=== PATIENT | male | born 1940 | race Caucasian/White ===

== ENCOUNTER → 2020-05-30 08:04 | Outpatient (CLI) | payer MEDICARE, SELFPAY ==
--- NOTE | ~2020-05-30 | CT_ITS ---
EXAMINATION: CT chest abdomen pelvis w con DATE: 05/30/2020 08:48 INDICATION: Malignant neoplasm of prostate. TECHNIQUE: Computed tomography (CT) of the chest, abdomen, and pelvis was performed with 100 mL Omnip aque 350 intravenous contrast. Automated exposure control and iterative reconstruction technique were employed. The dose-length product was 1037.16 mGy-cm. COMPARISON: CT chest, abdomen, and pelvis 10/16/2019 FINDINGS: CHEST CT: The lungs demonstrate mild atelectasis. There is a right posterior diaphragmatic hernia containing fa t. No pleural effusion. The heart size is normal. There are coronary artery calcifications. There are calcifications of the aortic valve. No pericardial effusion. There is mild right supraclavicular lym phadenopathy. There is mild mediastinal lymphadenopathy. There is a small sliding hiatal hernia. Ther e is a left shoulder arthroplasty. There are sclerotic lesions in the right third and fifth ribs and left fourth, fifth, and sixth ribs. There are sclerotic lesions in the T2, T3, T4, T5, T6, T7, and T1 1 vertebrae. ABDOMEN/PELVIS CT: Calcifications in the liver and spleen are consistent with old granulomatous disease. There is a 13 m m low-attenuation mass in right hepatic lobe. The gallbladder, pancreas, and adrenal glands are alex l. There are cysts in the kidneys measuring up to 4.3 cm on the left. There is a left inguinal hernia containing fat. There are changes of prostatectomy and pelvic lymph node dissection. There are no di lated loops of bowel. The appendix is normal. There is mild aortocaval lymphadenopathy. There is a pl ug from right inguinal hernia repair. There is subcutaneous fat stranding in the anterior abdominal w all, likely scarring or inflammation. There is no free intraperitoneal fluid. There is severe lumbar spondylosis. There is a sclerotic lesion in L5 vertebral body. IMPRESSION: 1. Sclerotic lesions of bone with worsening from 10/16/2019, consistent with metastatic disease. 2. Worsened aortocaval, mediastinal, and right supraclavicular lymphadenopathy, consistent with metas tatic disease. 3. New 13 mm liver mass suspicious for metastatic disease. Reviewed, dictated and finalized at location B. IMPRESSION: 1. Sclerotic lesions of bone with worsening from 10/16/2019, consistent with me tastatic disease. 2. Worsened aortocaval, mediastinal, and right supraclavicular lymphadenopathy, consistent with metastatic disease. 3. New 13 mm liver mass suspicious for metastatic disease.
[2020-05-30 08:23] LABS: Estimated Glomerular Filt Rate > 60
== END ==
PROVIDERS: Visit Provider Internal Medicine Medical Oncology
DX: C61 Malignant neoplasm of prostate (principal); C79.51 Secondary malignant neoplasm of bone
CPT/HCPCS: 36415; 71260; 74177; Q9967

== ENCOUNTER 2021-01-06 10:49 | Outpatient (CLI) | payer MEDICARE, SELFPAY ==
--- NOTE | ~2021-01-06 | CT_ITS ---
EXAMINATION: CT chest abdomen pelvis w con EXAM DATE: 01/06/2021 11:28 INDICATION: Prostate cancer. Osteoblastic disease. TECHNIQUE: Spiral CT of the chest, abdomen and pelvis was performed following intravenous injection o f 100 mL Omnipaque 350. Axial, coronal and sagittal images were reviewed. Coronal maximum intensity pixel images of chest reviewed. The dose-length product (DLP) for this examination was 826.52 mGy-c m. The exposure was tailored according to patient size (auto mA exposure control), and iterative rec onstruction (ASIR) was used as additional dose reduction technique. Comparison is made to prior exami nation from 05/30/2020. FINDINGS: CHEST: There is mild bronchiectasis. Linear lingular and right lower lobe subsegmental atelectasis. There is a moderate-sized right-sided Bochdalek hernia containing fat. There are no pleural or peric ardial effusions. Tracheobronchial tree is patent. More visible mediastinal lymph nodes than typi doug seen, but these have normalized in size compared to prior examination, probably metastatic with response to treatment. There is no pneumothorax. Heart normal in size. There is moderate kline ry arterial calcification, arterial sclerosis. ABDOMEN PELVIS: Previously seen newly developed small right liver lobe lesion is no longer identified , may be metastatic with response to treatment. The liver, spleen, adrenal glands and pancreas are u nremarkable. Gallbladder is unremarkable. No biliary obstruction. Portal and splenic veins are pat ent. Kidneys enhance symmetrically. There is no hydronephrosis. There are bilateral renal cysts annabelle suring up to 4.4 cm on the left. Patient has likely had prostatectomy. The bladder is unremarkable . Surgical clips from pelvic lymph node dissection. There is no retroperitoneal or pelvic lymphadenop athy. There is mild to moderate scattered arteriosclerotic disease. The appendix is normal. The stomach and small bowel are unremarkable. There is expected amount of c olonic stool. No free intraperitoneal gas. There is been some continued interval progression the extensive vertebral body and rib osteoblastic disease. IMPRESSION: 1. Mild interval progression in extensive vertebral body, rib osteoblastic disease. 2. Interval normalization of metastatic mediastinal lymph size, and interval resolution of previousl y seen newly developed small liver lesion suspected to be metastatic. Reviewed, dictated and finalized at location A. IMPRESSION: 1. Mild interval progression in extensive vertebral body, rib osteoblastic dis ease. 2. Interval normalization of metastatic mediastinal lymph size, and interval r esolution of previously seen newly developed small liver lesion suspected to be metastatic.
[2021-01-06 11:20] LABS: Estimated Glomerular Filt Rate > 60
== END 2021-01-06 10:50 | disposition home or self-care (01) ==
PROVIDERS: PCP Internal Medicine; Visit Provider Internal Medicine Medical Oncology
DX: C61 Malignant neoplasm of prostate (principal)
CPT/HCPCS: 71260; 74177; Q9967

== ENCOUNTER 2021-10-08 07:28 | Outpatient (CLI) | payer MEDICARE, SELFPAY ==
--- NOTE | ~2021-10-08 | CT_ITS ---
EXAMINATION: CT chest abdomen pelvis w con DATE: 10/08/2021 08:08 INDICATION: Restaging metastatic prostate cancer TECHNIQUE: Computed tomography (CT) of the chest, abdomen, and pelvis was performed with 100 cc Omnip aque 350 intravenous contrast. Automated exposure control and iterative reconstruction technique were employed. Exam dose: 879.81 mGy-cm total exam DLP. COMPARISON: 01/06/2021 CT chest abdomen pelvis FINDINGS: CHEST CT: Normal size and homogeneous enhancement of the thyroid gland. Normal heart size. Coronary calcification. Aortic valve calcification. No pericardial or pleural effu gregory. No thoracic aortic aneurysm or dissection is detected. There are calcified right paratracheal and left hilar nodes and calcified left lower lobe pulmonary g ranulomas and calcified hepatic and splenic granulomas, consistent with old granulomatous disease. No hilar or mediastinal mass lesion or lymphadenopathy. No pulmonary infiltrate or consolidation or pulmonary mass lesion is detected. Small sliding hiatal hernia. Status post left glenohumeral arthroplasty. ABDOMEN/PELVIS CT: Calcified hepatic and granulomas consistent with old granulomatous disease. Diffuse hepatic steatosis . No hepatic, splenic, pancreatic or adrenal space-occupying mass lesion. The gallbladder is present and appears unremarkable. No bile duct or pancreatic duct dilatation. Occasional right renal cysts measuring up to 9 mm. 1.2 cm and 1 cm left renal cysts. No urinary tract calculus or hydroureteronephrosis. Status post prostatectomy and bilateral pelvic sidewall lymph node excision. There is moderate diffus e thickening of the urinary bladder wall. There is atherosclerotic calcification of the abdominal aorta. No intraperitoneal or retroperitoneal or pelvic mass lesion or adenopathy or ascites. No bowel obstruction, bowel wall thickening, pneumatosis or intraperitoneal free air. Small fat-containing left inguinal hernia. Probable right inguinal herniorrhaphy. Extensive osteosclerotic metastatic disease of the cervical, thoracic and lumbar spine, ribs and to a lesser extent pelvis is again noted, relatively stable since 01/06/2021.. 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 Reviewed, dictated and finalized at location B. 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
[2021-10-08 08:00] LABS: Estimated Glomerular Filt Rate > 60
== END 2021-10-08 07:29 | disposition home or self-care (01) ==
LOC: ANHIMG 07:31
PROVIDERS: PCP Internal Medicine; Visit Provider Internal Medicine Medical Oncology
DX: C61 Malignant neoplasm of prostate (principal); C79.51 Secondary malignant neoplasm of bone; C77.1 Secondary and unspecified malignant neoplasm of intrathoracic lymph nodes; K40.90 Unilateral inguinal hernia, without obstruction or gangrene, not specified as recurrent; K44.9 Diaphragmatic hernia without obstruction or gangrene; N28.1 Cyst of kidney, acquired
CPT/HCPCS: 71260; 74177; Q9967

== ENCOUNTER 2022-02-01 07:26 | Inpatient (IN) | payer MEDICARE, SELFPAY ==
--- NOTE | ~2022-02-01 | CT_ITS ---
EXAMINATION: CT abdomen pelvis w con DATE: 02/01/2022 09:21 INDICATION: Nausea and vomiting. TECHNIQUE: Computed tomography (CT) of the abdomen and pelvis was performed with 100 mL Omnipaque 350 intravenous contrast. Automated exposure control and iterative reconstruction technique were employe d. The dose-length product was 661.97 mGy-cm. COMPARISON: CT abdomen and pelvis 10/08/2021 FINDINGS: The visualized portions of the lung bases demonstrate mild atelectasis. There is a right po sterior diaphragmatic hernia containing fat. No pleural effusion. The heart size is normal. There are coronary artery calcifications. There are calcifications of aortic valve. No pericardial effusion. T here is a small sliding hiatal hernia. There is a 7 mm cyst in the liver. Calcifications in the splee n are consistent with old granulomatous disease. The gallbladder, pancreas, and adrenal glands are no rmal. There are cysts in the kidneys measuring up to 3.8 cm on the left. There is a left inguinal her rosalio containing small bowel. The small bowel is dilated proximal to this area, consistent with obstruc tion. There are surgical clips from pelvic lymph node dissection. There are changes of prostatectomy. There is subcutaneous scarring in anterior abdominal wall. There are changes of right inguinal herni a repair. There are no pathologically enlarged lymph nodes. There is no free intraperitoneal fluid. T here are widespread scattered sclerotic lesions of bone, consistent with metastatic disease. IMPRESSION: 1. Left inguinal hernia containing small bowel with small bowel obstruction. 2. Widespread osseous metastatic disease, mildly worsened from 10/08/2021. Reviewed, dictated and finalized at location A.
--- NOTE | ~2022-02-01 | XR_ITS ---
EXAMINATION: XR abdomen obstructive series EXAM DATE: 02/03/2022 05:57 INDICATION: Resolving bowel obstruction with L inguinal hernia. TECHNIQUE: Frontal upright projection of the upper abdomen, frontal projection of the lower abdomen f or interpretation. Comparison is made to prior examination from 02/02/2022. FINDINGS: There is interval improvement in distention of small bowel, improving small bowel obstruct ion. Only mild dilation present in a few small bowel loops today. Moderate amount of colonic gas. Pel uma surgical clips from inguinal hernia repairs. Advanced lower lumbar spondylosis. Regions of dense bones, osteoblastic disease. No free intraperitoneal gas. Lung bases unremarkable. IMPRESSION: Resolving dilated small bowel. Osteoblastic disease. Reviewed, dictated and finalized at location A.
--- NOTE | ~2022-02-01 | XR_ITS ---
EXAMINATION: XR abdomen obstructive series EXAM DATE: 02/02/2022 06:01 INDICATION: F/U on possible small bowel obs asooc w/ LIH . TECHNIQUE: Frontal upright projection of the upper abdomen, frontal projection of the lower abdomen f or interpretation. Correlation made to prior CT abdomen pelvis from 02/01/2022. FINDINGS: CT scan demonstrated a left lower quadrant inguinal hernia containing small bowel, causing obstruction. Multiple loops of distended air-filled small bowel up to about 4 cm in diameter, consis tent with small bowel obstruction. There are bilateral inguinal surgical clips. No evidence of free i ntraperitoneal air. Scattered osteoblastic disease. No basilar consolidation. IMPRESSION: Moderately distended small bowel. Inguinal hernia was reportedly reduced; consider addit ional follow-up or small bowel follow-through. Reviewed, dictated and finalized at location A. IMPRESSION: Moderately distended small bowel. Inguinal hernia was reportedly r educed; consider additional follow-up or small bowel follow-through.
[2022-02-01 07:37] VITALS: BP 132/102; PULSE 105; RESP 18; TEMP 36.5; O2SAT 100
--- NOTE | 2022-02-01 07:43 | ECG_ITS ---
Measurements Intervals [place] Rate: 100 P: UT: 0 QRS: -28 QRSD: 148 T: -61 QT: 414 QTc: 535 Interpretive Statements ATRIAL FIBRILLATION WITH RAPID VENTRICULAR RESPONSE BORDERLINE LEFT AXIS DEVIATION [QRS AXIS < -20] RIGHT BUNDLE BRANCH BLOCK [120+ ms QRS DURATION, UPRIGHT V1, 40+ ms S IN I/aVL/V4/V5/V6] MODERATE T-WAVE ABNORMALITY, CONSIDER INFERIOR AND LATERAL ISCHEMIA [-0.1+ mV T-WAVE IN I/aVL/V5/V6] ABNORMAL ECG NO PREVIOUS ECG AVAILABLE FOR COMPARISON Electronically Signed On 02-01-2022 11:21:57 CDT by Mitchel Fernandez M.D.
[2022-02-01] MEDS: SODIUM CHLORIDE 0.9% IV 1,000 ML 999 ML IV CONT ×2 (07:53→09:01)
[2022-02-01] MEDS: ONDANSETRON INJ 4 MG/2 ML VIAL IV PUSH ×2 (07:53→18:07)
--- NOTE | 2022-02-01 08:03 | PC.NURSE ---
Pt noted he hadnt been able to urinate much more that dribbles the past 3 days. Bladder scan revealed approx 50ml in bladder at this time.
[2022-02-01 08:06] LABS: Hematocrit 30.6 % (42.0-52.0); Hemoglobin 9.5 g/dL (14.0-18.0); Immature Platelet Fraction Pct 7.4 % (0.9-11.2); Mean Corpuscular Hemoglobin 30.8 pg (26-34); Mean Corpuscular Volume 99.4 fl (80-100); Mean Platelet Volume 10.7 fl (7.4-10.4); Platelet Count Result 67 k/mm3 (150-375); Red Blood Count 3.08 M/mm3 (4.6-6.20); Red Cell Distribution Width 20.3 % (11.5-14.5); White Blood Count 6.3 K/mm3 (4.5-10.0)
--- NOTE | 2022-02-01 08:16 | ED.NAVMDI ---
HPI - Nausea/Vomiting/Diarrhea General Chief complaint: Nausea/Vomiting/Diarrhea Stated complaint: vomiting Time Seen by Provider: 02/01/22 07:42 Source: patient, family and EMS Mode of arrival: EMS Limitations: no limitations History of Present Illness HPI Narrative: Patient is 81 years old presented to the ED with vomiting over the last 3 days, on average 4 times a day. Patient denies any fever, chills, abdominal pain, diarrhea, urinary symptoms. History of prostatic cancer, on chemotherapy for years, last 1 was 5 days ago. Patient denies any history of vomiting with chemotherapy. Related Data Allergies Allergy/AdvReac Type Severity Reaction Status Date / Time No Known Allergies Allergy Verified 02/01/22 07:52 Review of Systems Review of Systems: CONSTITUTIONAL: Denies fever, chills, or sweats. EYES: Denies visual changes, redness, or discharge. ENT: Denies rhinorrhea, congestion, sore throat, or otalgia. CARDIOVASCULAR: Denies chest pain, palpitations, or edema. RESPIRATORY: Denies cough or dyspnea. GASTROINTESTINAL: Denies abdominal pain, nausea, vomiting, or diarrhea. GENITOURINARY: Vomiting SKIN: Denies rash or itching. MUSCULOSKELETAL: Denies back pain, joint pain, or myalgia. NEUROLOGIC: Denies headache, numbness, or weakness. PSYCHIATRIC: Denies anxiety or depression. PMFSH Family History Family History Mother Diabetes mellitus Other Family history of cardiovascular disease Family history of malignant neoplasm Social History Social History Smoking status: Former smoker Smoking end date: 10/18/81 Alcohol intake: current Exam Narrative: General appearance: Well-developed, well-nourished Skin: Normal color Head: Normocephalic, nontraumatic Eyes: Clear conjunctiva ENT: Oropharynx normal, ears normal, nose normal Neck: Supple, nontender Chest and respiratory: Airway patent, no respiratory distress, no accessory muscle use Heart: Regular rate/rhythm Abdomen: Soft, nontender, no organomegaly, quiet bowel sounds Vascular: Normal peripheral pulses, normal capillary refill. Musculoskeletal: Normal range of motion, nontender back Neurologic: Alert and oriented ?3, [employer] is normal as tested, no gross motor deficit Course Course Emergency Course: Stable Consultations Consultation #1: Date: 02/01/22 Time: 09:58 Vital Signs Vital signs: Vital Signs Temperature 36.5 C 02/01/22 07:37 Pulse Rate 105 H 02/01/22 07:37 Respiratory Rate 18 02/01/22 07:37 Blood Pressure 132/102 H 02/01/22 07:37 Pulse Oximetry 100 02/01/22 07:37 Temperature 36.5 C 02/01/22 07:37 Pulse Rate 105 H 02/01/22 07:37 Respiratory Rate 18 02/01/22 07:37 Blood Pressure 132/102 H 02/01/22 07:37 Pulse Oximetry 100 02/01/22 07:37 Procedures Other Procedure Procedure 1: Other Procedure: Left inguinal hernia closed reduction with constant pressure and manipulation. 3 minutes time used for reduction. Patient feeling well, pain resolved, patient tolerated the procedure well MDM - Nausea/Vomiting/Diarrhea Differential Diagnosis Differential diagnosis: Likely gastroenteritis, drug-induced nausea and vomiting, dehydration and other (Electrolyte imbalance, small bowel obstruction) Lab Data Result diagrams: 02/01/22 07:58 02/01/22 07:58 Labs: Lab Results 02/01/22 02/01/22 02/01/22 Range/Units 07:58 07:58 07:58 WBC 6.3 (4.5-10.0) K/mm3 RBC 3.08 L (4.6-6.20) M/mm3 Hgb 9.5 L (14.0-18.0) g/dL Hct 30.6 L (42.0-52.0) % MCV 99.4 (80-100) fl MCH 30.8
[2022-02-01 08:18] LABS: Alanine Aminotransferase 21 U/L (4-50); Albumin Level 4.9 g/dL (3.5-5.1); Alkaline Phosphatase 143 U/L (38-126); Anion Gap 17 mmol/L (8-16); Aspartate Amino Transferase 37 U/L (17-59); Bilirubin,Total 0.8 mg/dL (0.2-1.3); Blood Urea Nitrogen 36 mg/dL (9-20); Calcium 8.2 mg/dL (8.4-10.2); Carbon Dioxide 22 mmol/L (22-30); Chloride 97 mmol/L (98-107); Estimated CRCL calculation 46 ml/min; Estimated Glomerular Filt Rate > 60; Glucose 266 mg/dL (65-110); Lipase 40 U/L (23-300); Potassium 3.5 mmol/L (3.4-5.0); Sodium 136 mmol/L (137-145)
[2022-02-01 08:19] LABS: Lactic Acid Reflex 3.1 mmol/L (0.7-2.1)
[2022-02-01 08:41] LABS: Band Neutrophils Percent 8 % (0-6); Lymphocytes Absolute Manual 0.12 K/mm3 (1.1-4.5); Monocytes Absolute Manual 0.12 K/mm3 (0.1-0.90); Monocytes Percent Manual 2 % (3-9); Neutrophils Absolute Manual 6.04 K/mm3 (1.3-6.7); Neutrophils Percent Manual 88 % (46-73); Total Cells Counted 100
[2022-02-01 08:42] LABS: Anisocytosis 1+ (NORMAL); Platelet Estimate Decreased (Adequate)
--- NOTE | 2022-02-01 09:39 | PC.NURSE ---
Pt vomiting. EDP notified. Gown changed and new orders for antiemetics received.
[2022-02-01] MEDS: METOCLOPRAMIDE HCL INJ 10 MG/2 ML VIAL IV PUSH (09:45)
[2022-02-01] MEDS: diphenhydrAMINE HCl INJ 50 MG/ML VIAL 25 MG IV PUSH (09:46)
--- NOTE | 2022-02-01 10:15 | PC.NURSE ---
Per EDP NG tube not needed at this time after successful hernia reductions. Will continue to monitor pt vomiting
[2022-02-01 11:01] LABS: Reflex Lactic Acid Yes or No Add Lactic
[2022-02-01 11:30] VITALS: BP 113/81; PULSE 95; RESP 16; O2SAT 97
[2022-02-01 11:45] LABS: Appearance Urine Clear (Clear); Bilirubin Urine Negative (Negative); Blood Urine Negative (Negative); Color Urine Yellow (Yellow); Glucose Urine UA Negative (Negative); Ketones Urine Negative (Negative); Leukocyte Esterase Ur Negative LEU/UL (Negative); Nitrate Urine Negative (Negative); Protein Urine Negative (Negative); Specific Grav Ur <= 1.005 (1.001-1.035); Urobilinogen Urine 0.2 mg/dL (<2.0)
[2022-02-01 11:53] LABS: Add Urine Microscopic? NO
[2022-02-01 12:05] VITALS: BMI 28.7
[2022-02-01 12:23] LABS: Lactic Acid 2.6 mmol/L (0.7-2.1)
[2022-02-01 13:46] VITALS: BP 105/64; PULSE 83; RESP 17; TEMP 37.1; O2SAT 100
[2022-02-01] MEDS: SODIUM CHLORIDE 0.9% IV 1,000 ML 100 ML IV CONT ×2 (13:46→20:46)
--- NOTE | 2022-02-01 14:08 | PM.CNGS ---
Assessment and Plan Assessment and plan (1) Recurrent inguinal hernia of left side with obstruction: Onset Date: ~01/2022 Code(s): K40.31 - Unilateral inguinal hernia, with obstruction, without gangrene, recurrent Status: Acute Assessment and Plan: The patient is feeling better now that his left inguinal hernia has been reduced. Is likely that this was the cause of the small-bowel obstructions seen on CT. At this time will allow the patient begin clear liquids will check obstructive use of the abdomen on plain films tomorrow morning. I have thoroughly discussed with the patient and his the risks, benefits, and possible complications of surgical intervention for a recurrent left inguinal hernia. If we can keep this reduced and still have the patient get up and around since he just had chemotherapy 5 days ago is probably wiser not to proceed to surgical intervention at this time. I have discussed with him that probably we could do this under local anesthetic with IV sedation or GI BS. If he is doing well tomorrow he could probably be discharged and will use watchful waiting. Will forward this note to Dr. Mattie Rai and get his opinion upon timing for possible surgical intervention if this with the patient chooses. Certainly since he is continuing to undergo chemotherapy he will need to be very knowledgeable in knowing how to lay down and reduce the hernia if it seems to become incarcerated again. However in his situation with stage IV prostate cancer and his age watchful waiting is a reasonable method of following him and if he has recurrent episodes of incarceration we will need to consider electively timing the site and time for a repair which would try to be done with local anesthetic and IV sedation. Both patient and concur and will discuss it further tomorrow depending on how the patient is doing. Will continue IV fluids at a slow rate allow clear liquids and have the patient began ambulating. I have carefully shown him how to reduce his hernia and he will try to do this himself if he notices that it bulges back out. (2) Prostate cancer metastatic to bone: Onset Date: Unknown Code(s): C61 - Malignant neoplasm of prostate; C79.51 - Secondary malignant neoplasm of bone Status: Acute Assessment and Plan: Patient currently undergoing chemotherapy due to bone metastasis directed by Dr. Ahumada. (3) Complete small bowel obstruction: Code(s): K56.601 - Complete intestinal obstruction, unspecified as to cause Status: Acute Assessment and Plan: This seems to be resolving as patient had a bowel movement since being brought from the emergency room to his room. Will plan to repeat abdominal films tomorrow morning repeat labs including a lactate in the morning and have patient begin trying clear liquids. I have taught the patient where to check for his hernia and how to reduce it. Additional Plan Patient currently undergoing chemotherapy due to bone metastasis directed by Dr. Ahumada. In view of this I would recommend watchful waiting for his hernia unless there is repetitive issues with incarceration. History of Present Illness Consult details Consult date: 02/01/22 Reason for consult: other (Nausea and vomiting) Narrative: Patient is an 81 year old white male who presented to the ED on 02/01/2022 with vomiting over the last 3 days, on average 4 times a day. patient's states that it began after supper on Wednesday night. Patient states that he did have a little bit of left groin pain the night that it started but had really noticed it that much prior to that or since. Patient denies any fever, chills, diarrhea, or urinary tract symptoms. He has a long history of prostatic cancer, he had a prostatectomy almost 15 years ago and then recently has been on chemotherapy for years his last treatment was was 5 days ago. Patient denies any history of vomiting with chemoth
--- NOTE | 2022-02-01 17:42 | PM.IMHP ---
H&P: HPI History of Present Illness Date/Time: 02/01/22 17:42 this is a 81-year-old male who presented to the emergency department with complaints of nausea vomiting. Patient has a past medical history diabetes, high cholesterol, BPH, GERD, hypertension, and anxiety. According to patient on he started to experience nausea vomiting with greenish stomach content. Patient notes that he also has diarrhea along with his nausea vomiting. Patient notes that he took Zofran at home was unable to keep the pills down. WBC 6.3 hemoglobin 9.5 hematocrit 30.6, platelets 67, sodium 136, potassium 3.5, BUN 36, creatinine 1.00, glucose 266, lactic acid 3.1, liver function test within normal limits, UA no abnormalities, CT of the abdomen indicate small bowel obstruction EKG indicates AFib with RVR heart rate of 100 which has resolved. Patient continues to complain about diarrhea and he is no longer having nausea vomiting. Patient being admitted for small-bowel obstruction, surgery consulted. Denies any chest pain, palpitation, shortness of breath, abdominal pain, lightheaded, dizziness or bloody stools Chief Complaint: Nausea vomiting Review of Systems Review of Systems: All systems reviewed & are unremarkable except as noted in HPI and below PMFSH Past Medical History Medical History (Updated 02/01/22 @ 17:51 by JACKSON Leonard) Afib Depression Diabetes mellitus History of prostate cancer HLD (hyperlipidemia) HTN (hypertension) Prostate cancer Prostate cancer metastatic to bone (Unknown) Surgical History Surgical History History of abdominal prostatectomy History of inguinal hernia repair, bilateral Family History Family History Mother Diabetes mellitus Other Family history of cardiovascular disease Family history of malignant neoplasm Social History Social History Smoking packs per day: 2 Smoking cigarettes per day: 40.0 Years smoked: 25 Smoking pack-years: 50.00 Smoking status: Former smoker Tobacco type: cigarettes Smoking end date: 10/18/81 Alcohol intake: never Substance use: never Spiritual care concerns: No Meds Home Medications and Allergies Home Medications Medication Instructions Recorded Confirmed Type alprazolam 0.25 mg PO Q8H PRN 02/01/22 02/01/22 History amlodipine 10 mg PO DAILY 02/01/22 02/01/22 History cholecalciferol (vitamin D3) 50 mcg PO DAILY 02/01/22 02/01/22 History esomeprazole magnesium 20 mg PO DAILY 02/01/22 02/01/22 History finasteride 5 mg PO DAILY 02/01/22 02/01/22 History folic acid 800 mcg PO DAILY 02/01/22 02/01/22 History glipizide 5 mg PO DAILY 02/01/22 02/01/22 History metoprolol succinate [Toprol XL] 25 mg PO DAILY 02/01/22 02/01/22 History mirtazapine 15 mg PO HS 02/01/22 02/01/22 History niacin [B-3 Niacin] 500 mg PO QAM 02/01/22 02/01/22 History ondansetron HCl 4 mg PO Q8H PRN 02/01/22 02/01/22 History pravastatin 40 mg PO DAILY 02/01/22 02/01/22 History triamterene-hydrochlorothiazid 37.5 tablet PO DAILY 02/01/22 02/01/22 History [Maxzide-25mg] Allergies Allergy/AdvReac Type Severity Reaction Status Date / Time No Known Allergies Allergy Verified 02/01/22 07:52 Vital Signs Vital Signs - 24 hr 02/01/22 07:37 02/01/22 11:30 02/01/22 13:46 Temperature 97.7 F 98.8 F Pulse Rate 105 H 95 83 Respiratory Rate 18 16 17 Blood Pressure 132/102 H 113/81 105/64 Pulse Oximetry 100 97 100 Exam Narrative: General: Pleasant, no obvious distress noted HEENT: PERRLA, Mucous Membranes Moist and [place], Nares Patent, Sclera Clear Neck: JVD, Supple Pulmonary: Clear to Auscultation, Normal Air Movement Cardiovascular: No Murmurs, Gallops, or Rubs, Regular Rhythm, Regular Rate Abdominal: Abdomen Soft, Non-Distended, Normal Bowel Sounds Extremities: Normal Pulse
[2022-02-01 19:28] LABS: Hemoglobin A1C 5.3 % (<5.7)
[2022-02-01] MEDS: MIRTAZAPINE SOLTAB 15 MG TAB.DISPER PO (20:46)
[2022-02-01 21:05] LABS: Glucose Point of Care 219 mg/dl (65-105)
[2022-02-01 21:48] VITALS: O2SAT 95
[2022-02-01 22:00] VITALS: BP 99/61; PULSE 110; RESP 16; TEMP 36.6; O2SAT 100
[2022-02-02 06:00] VITALS: BP 119/76; PULSE 115; RESP 18; TEMP 36.8; O2SAT 100
[2022-02-02 06:03] LABS: Hematocrit 25.2 % (42.0-52.0); Hemoglobin 7.9 g/dL (14.0-18.0); Immature Platelet Fraction Pct 6.4 % (0.9-11.2); Mean Corpuscular HGB Conc 31.3 g/dl (32-36); Mean Corpuscular Hemoglobin 31.1 pg (26-34); Mean Corpuscular Volume 99.2 fl (80-100); Mean Platelet Volume 11.9 fl (7.4-10.4); Platelet Count Result 45 k/mm3 (150-375); Red Blood Count 2.54 M/mm3 (4.6-6.20); Red Cell Distribution Width 20.1 % (11.5-14.5)
[2022-02-02 06:18] LABS: Anion Gap 11 mmol/L (8-16); Blood Urea Nitrogen 24 mg/dL (9-20); Calcium 7.1 mg/dL (8.4-10.2); Carbon Dioxide 20 mmol/L (22-30); Chloride 107 mmol/L (98-107); Estimated CRCL calculation 66 ml/min; Estimated Glomerular Filt Rate > 60; Glucose 176 mg/dL (65-110); Magnesium 2.4 mg/dL (1.6-2.3); Sodium 138 mmol/L (137-145)
[2022-02-02 06:36] LABS: White Blood Count 1.4 K/mm3 (4.5-10.0)
[2022-02-02 07:03] LABS: Platelet Estimate Decreased (Adequate)
[2022-02-02 07:11] LABS: Hypochromasia 1+ (NORMAL)
[2022-02-02 07:12] LABS: Anisocytosis 1+ (NORMAL); Band Neutrophils Percent 21 % (0-6); Lymphocytes Absolute Manual 0.29 K/mm3 (1.1-4.5); Lymphocytes Percent Manual 21 % (18-44); Metamyelocytes Percent 12 %; Monocytes Absolute Manual 0.02 K/mm3 (0.1-0.90); Monocytes Percent Manual 2 % (3-9); Myelocytes Percent 1 %; Neutrophils Absolute Manual 0.89 K/mm3 (1.3-6.7); Neutrophils Percent Manual 43 % (46-73); Nucleated Red Blood Cells 3 %; Total Cells Counted 100
[2022-02-02 07:13] LABS: Tear Drop Cells 1+ (NORMAL)
[2022-02-02 07:57] LABS: Glucose Point of Care 175 mg/dl (65-105)
[2022-02-02] MEDS: FOLIC ACID 0.4 MG TABLET 0.8 MG PO (08:43)
[2022-02-02] MEDS: TRIAMTERENE 37.5 MG/HCTZ 25 MG (MAXZIDE) TABLET 1 TAB PO (08:43)
[2022-02-02] MEDS: ONDANSETRON INJ 4 MG/2 ML VIAL IV PUSH ×2 (08:43→17:44)
[2022-02-02] MEDS: PRAVASTATIN SODIUM 20 MG TABLET 40 MG PO (08:43)
[2022-02-02] MEDS: PANTOPRAZOLE SODIUM IV 40 MG VIAL IV PUSH (08:43)
[2022-02-02] MEDS: FINASTERIDE 5 MG TABLET PO (08:43)
[2022-02-02 08:44] VITALS: PULSE 106
[2022-02-02] MEDS: glipiZIDE 5 MG TABLET PO (08:44)
[2022-02-02] MEDS: METOPROLOL SUCCINATE EXT REL 25 MG TABCR PO (08:44)
[2022-02-02] MEDS: amLODIPine BESYLATE 5 MG TABLET 10 MG PO (08:48)
--- NOTE | 2022-02-02 10:15 | P.PNIM_ITS ---
Progress Note: A&P Assessment and Plan (1) Recurrent inguinal hernia of left side with obstruction: Onset Date: ~01/2022 Code(s): K40.31 - Unilateral inguinal hernia, with obstruction, without gangrene, recurrent Status: Acute Assessment and Plan: * CT of the abdomen/pelvis Left inguinal hernia containing small bowel with small bowel obstruction * Repeat abd xray shows Moderately distended small bowel. Inguinal hernia was reportedly reduced; consider additional follow-up or small bowel follow- through' * Reports nausea with intake * WBC 1.4 * Surgery consulted refer to small-bowel obstruction * Zofran for nausea * Consider pain medications * Caused by inguinal hernia * CT indicates Left inguinal hernia containing small bowel with small bowel obstruction. * No surgical intervention due to recent chemotherapy treatment 5 days ago. * Continue IV fluids with clear liquid diet and ambulation (2) Diabetes mellitus: Code(s): E11.9 - Type 2 diabetes mellitus without complications Status: Acute Assessment and Plan: * Glucose was 176 * Continue sliding scale hypoglycemic protocol and Accu-Cheks * Continue glipizide * Will adjust medication as needed * A1c 5.3 (3) HTN (hypertension): Code(s): I10 - Essential (primary) hypertension Status: Acute Assessment and Plan: * BP 119/76 * Slightly elevated * Continue amlodipine 10 mg daily and triamterene/hctz , and metoprolol 25 mg daily with p.r.n. hydralazine with parameters * Will adjust medication as needed * Watch BP looks like he has some hypotension overnight (4) HLD (hyperlipidemia): Code(s): E78.5 - Hyperlipidemia, unspecified Status: Acute Assessment and Plan: * Continue statin (5) GERD (gastroesophageal reflux disease): Code(s): K21.9 - Gastro-esophageal reflux disease without esophagitis Status: Acute Assessment and Plan: * Started pantoprazole (6) Afib: Code(s): I48.91 - Unspecified atrial fibrillation Status: Acute Assessment and Plan: * Controlled, sinus rhythm * Continue metoprolol 25 mg daily, patient currently not on any anticoagulant. (7) Depression: Code(s): F32.A - Depression, unspecified Status: Acute Assessment and Plan: * Continue mirtazapine (8) Anxiety: Code(s): F41.9 - Anxiety disorder, unspecified Status: Acute Assessment and Plan: * Started Ativan (9) History of prostate cancer: Code(s): Z85.46 - Personal history of malignant neoplasm of prostate Status: Acute Assessment and Plan: * Stage IV prostate cancer * Currently receiving chemotherapy, last treatment 01/28/22 * Sees Dr. Ahumada Time Spent With Patient Time with patient: Greater than 35 minutes Subjective Date/time seen: 02/02/22 10:15 Interval history: Date/Time: 02/01/22 17:42 This is a 81-year-old male who presented to the emergency department with complaints of nausea vomiting. Patient has a past medical history diabetes, high cholesterol, BPH, GERD, hypertension, and anxiety. According to patient on he started to experience nausea vomiting with greenish stomach content. Patient notes that he also has diarrhea along with his nausea vomiting. Patient notes that he took Zofran at home was unable to keep the pills down. WBC 6.3 hemogl
--- NOTE | 2022-02-02 10:15 | PM.IMPN ---
Progress Note: A&P Assessment and Plan (1) Recurrent inguinal hernia of left side with obstruction: Onset Date: ~01/2022 Code(s): K40.31 - Unilateral inguinal hernia, with obstruction, without gangrene, recurrent Status: Acute Assessment and Plan: CT of the abdomen/pelvis Left inguinal hernia containing small bowel with small bowel obstruction Repeat abd xray shows Moderately distended small bowel. Inguinal hernia was reportedly reduced; consider additional follow-up or small bowel follow-through' Reports nausea with intake WBC 1.4 Surgery consulted refer to small-bowel obstruction Zofran for nausea Consider pain medications Caused by inguinal hernia CT indicates Left inguinal hernia containing small bowel with small bowel obstruction. No surgical intervention due to recent chemotherapy treatment 5 days ago. Continue IV fluids with clear liquid diet and ambulation (2) Diabetes mellitus: Code(s): E11.9 - Type 2 diabetes mellitus without complications Status: Acute Assessment and Plan: Glucose was 176 Continue sliding scale hypoglycemic protocol and Accu-Cheks Continue glipizide Will adjust medication as needed A1c 5.3 (3) HTN (hypertension): Code(s): I10 - Essential (primary) hypertension Status: Acute Assessment and Plan: BP 119/76 Slightly elevated Continue amlodipine 10 mg daily and triamterene/hctz , and metoprolol 25 mg daily with p.r.n. hydralazine with parameters Will adjust medication as needed Watch BP looks like he has some hypotension overnight (4) HLD (hyperlipidemia): Code(s): E78.5 - Hyperlipidemia, unspecified Status: Acute Assessment and Plan: Continue statin (5) GERD (gastroesophageal reflux disease): Code(s): K21.9 - Gastro-esophageal reflux disease without esophagitis Status: Acute Assessment and Plan: Started pantoprazole (6) Afib: Code(s): I48.91 - Unspecified atrial fibrillation Status: Acute Assessment and Plan: Controlled, sinus rhythm Continue metoprolol 25 mg daily, patient currently not on any anticoagulant. (7) Depression: Code(s): F32.A - Depression, unspecified Status: Acute Assessment and Plan: Continue mirtazapine (8) Anxiety: Code(s): F41.9 - Anxiety disorder, unspecified Status: Acute Assessment and Plan: Started Ativan (9) History of prostate cancer: Code(s): Z85.46 - Personal history of malignant neoplasm of prostate Status: Acute Assessment and Plan: Stage IV prostate cancer Currently receiving chemotherapy, last treatment 01/28/[address] Ahumada Time Spent With Patient Time with patient: Greater than 35 minutes Subjective Date/time seen: 02/02/22 10:15 Interval history: Date/Time: 02/01/22 17:42 This is a 81-year-old male who presented to the emergency department with complaints of nausea vomiting. Patient has a past medical history diabetes, high cholesterol, BPH, GERD, hypertension, and anxiety. According to patient on he started to experience nausea vomiting with greenish stomach content. Patient notes that he also has diarrhea along with his nausea vomiting. Patient notes that he took Zofran at home was unable to keep the pills down. WBC 6.3 hemoglobin 9.5 hematocrit 30.6, platelets 67, sodium 136, potassium 3.5, BUN 36, creatinine 1.00, glucose 266, lactic acid 3.1, liver function test within normal limits, UA no abnormalities, CT of the abdomen indicate small bowel obstruction EKG indicates AFib with RVR heart rate of 100 which has resolved. Patient continues to complain about diarrhea and he is no longer having nausea vomiting. Patient being admitted for small-bowel obstruction, surgery consulted. Denies any chest pain, palpitation, shortness of breath, abdominal pain, lightheaded, di
[2022-02-02 11:24] LABS: Glucose Point of Care 184 mg/dl (65-105)
--- NOTE | 2022-02-02 12:20 | PM.PNGS ---
Progress Note: A&P Assessment and Plan (1) Recurrent inguinal hernia of left side with obstruction: Onset Date: ~01/2022 Code(s): K40.31 - Unilateral inguinal hernia, with obstruction, without gangrene, recurrent Status: Acute Assessment and Plan: Patient having complaints of nausea this morning after having clear liquids. Plain films showed still moderately distended small bowel. He is passing gas and having frequent liquid stools. He did have a small bulge in the left groin today that was easily reduced. I encouraged the patient to check his hernia and gently massage this area after activity/ambulation. Will keep him on clear liquids today and allow him to be advanced to full liquids later today if feeling better. Repeat obstructive series in the morning. Encouraged ambulating in the halls. (2) Prostate cancer metastatic to bone: Onset Date: Unknown Code(s): C61 - Malignant neoplasm of prostate; C79.51 - Secondary malignant neoplasm of bone Status: Acute Assessment and Plan: Patient currently undergoing chemotherapy due to bone metastasis directed by Dr. Ahumada. (3) Complete small bowel obstruction: Code(s): K56.601 - Complete intestinal obstruction, unspecified as to cause Status: Deleted Assessment and Plan: [place] this was related to the left inguinal hernia, which is now reduced. His bowels are moving and he is actually now complaining of frequent diarrhea, but continues to have nausea. He has been dealing with diarrhea for months now that he has associated with his chemotherapy and being started on metformin. Repeat obstructive series tomorrow and continue clear liquids for now. Additional Plan I have discussed the patient's case and plan of care with . The patient's will call Dr. Ahumada's office today and see if they are able to access [facility]'s records for review of this hospitalization. If not, then they could request them or we could send the records. The patient is leaning more towards having the hernia repaired. We will continue to try watchful waiting until we can touch base with Dr. hAumada to decide on the optimal time to proceed with a hernia repair as an outpatient. Subjective Subjective Date/Time Seen: 02/02/22 11:20 Patient reports: flatus, diarrhea and nausea Interval history: This is an 81-year-old male who presented with a left inguinal hernia containing small bowel on CT that was possibly causing a small bowel obstruction. The hernia was reduced in the ER and the patient was admitted. His chart was reviewed and he is seen and examined this morning with his at the bedside. He reports feeling better today but still having some nausea. He had most of his clear liquid tray for breakfast and felt nauseous after eating. He reports spitting up a very small amount but no significant vomiting. He reports feeling better after having Zofran. He is passing gas and continues to have liquid diarrhea, reporting having a BM about once every hour or 1.5 hours. Denies bloating or abdominal pain. Denies groin pain or noticing a bulge. He has walked in the room to get to the bathroom several times through the night and this morning and does not specifically notice if his hernia bulges with ambulation. No other complaints at this time. To note, he does report he has been dealing with diarrhea for months that worsened after starting metformin about 2 months ago. Exam Const: General: comfortable, no acute distress and awake Orientation/consciousness: patient oriented x3 GI: Inspection: normal to inspection, non-distended and scar ( [place] abdomen and bilateral inguinal scars from previous surgery) GI Palp: Yes Soft to palpation, No Tenderness to palpation present (GI) and No Guarding due to palpation present (GI) Auscultation: normal bowel sounds Other: Palpable small bulge in the left inguinal area that was soft and easily reducible, patient st
[2022-02-02 14:00] VITALS: BP 112/83; PULSE 97; RESP 18; TEMP 36; O2SAT 100
[2022-02-02 16:16] LABS: Glucose Point of Care 141 mg/dl (65-105)
[2022-02-02] MEDS: POTASSIUM CHLORIDE INJ 40 MEQ in SODIUM CHLORIDE 0.9% IV 500 ML 130 MEQ IVPB (17:44)
[2022-02-02] MEDS: SODIUM CHLORIDE 0.9% IV 1,000 ML 100 ML IV CONT (17:45)
[2022-02-02] MEDS: MIRTAZAPINE SOLTAB 15 MG TAB.DISPER PO (20:06)
[2022-02-02 20:42] LABS: Glucose Point of Care 151 mg/dl (65-105)
[2022-02-02 22:00] VITALS: BP 122/70; PULSE 87; RESP 18; TEMP 37.4; O2SAT 100
[2022-02-03 06:00] VITALS: BP 100/64; PULSE 86; RESP 18; TEMP 37; O2SAT 100
[2022-02-03 07:25] LABS: Hematocrit 22.8 % (42.0-52.0); Immature Platelet Fraction Pct 8.8 % (0.9-11.2); Mean Corpuscular HGB Conc 30.7 g/dl (32-36); Mean Corpuscular Hemoglobin 31.3 pg (26-34); Mean Corpuscular Volume 101.8 fl (80-100); Mean Platelet Volume 12.3 fl (7.4-10.4); Platelet Count Result 42 k/mm3 (150-375); Red Blood Count 2.24 M/mm3 (4.6-6.20); Red Cell Distribution Width 19.9 % (11.5-14.5)
--- NOTE | 2022-02-03 07:30 | P.DS_ITS ---
DS: Admitting Diagnosis Discharge Date 02/03/22 0730 Admitting Diagnosis hernia with obstruction DS: Discharge Diagnosis Discharge Diagnosis (1) Recurrent inguinal hernia of left side with obstruction: Onset Date: ~01/2022 Code(s): K40.31 - Unilateral inguinal hernia, with obstruction, without gangrene, recurrent Status: Acute Assessment and Plan: * CT of the abdomen/pelvis Left inguinal hernia containing small bowel with small bowel obstruction * Repeat abd xray shows Moderately distended small bowel. Inguinal hernia was reportedly reduced; consider additional follow-up or small bowel follow- through' * Reports nausea with intake * WBC 1.4 * Surgery consulted refer to small-bowel obstruction * Zofran for nausea * Consider pain medications * Caused by inguinal hernia * CT indicates Left inguinal hernia containing small bowel with small bowel obstruction. * No surgical intervention due to recent chemotherapy treatment 5 days ago. * Continue IV fluids with clear liquid diet and ambulation (2) Diabetes mellitus: Code(s): E11.9 - Type 2 diabetes mellitus without complications Status: Acute Assessment and Plan: * Glucose was 176 * Continue sliding scale hypoglycemic protocol and Accu-Cheks * Continue glipizide * Will adjust medication as needed * A1c 5.3 (3) HTN (hypertension): Code(s): I10 - Essential (primary) hypertension Status: Acute Assessment and Plan: * BP 119/76 * Slightly elevated * Continue amlodipine 10 mg daily and triamterene/hctz , and metoprolol 25 mg daily with p.r.n. hydralazine with parameters * Will adjust medication as needed * Watch BP looks like he has some hypotension overnight (4) HLD (hyperlipidemia): Code(s): E78.5 - Hyperlipidemia, unspecified Status: Acute Assessment and Plan: * Continue statin (5) GERD (gastroesophageal reflux disease): Code(s): K21.9 - Gastro-esophageal reflux disease without esophagitis Status: Acute Assessment and Plan: * Started pantoprazole (6) Afib: Code(s): I48.91 - Unspecified atrial fibrillation Status: Acute Assessment and Plan: * Controlled, sinus rhythm * Continue metoprolol 25 mg daily, patient currently not on any anticoagulant. (7) Depression: Code(s): F32.A - Depression, unspecified Status: Acute Assessment and Plan: * Continue mirtazapine (8) Anxiety: Code(s): F41.9 - Anxiety disorder, unspecified Status: Acute Assessment and Plan: * Started Ativan (9) History of prostate cancer: Code(s): Z85.46 - Personal history of malignant neoplasm of prostate Status: Acute Assessment and Plan: * Stage IV prostate cancer * Currently receiving chemotherapy, last treatment 01/28/22 * Sees Dr. Ahumada DS: Summary Hospital Course Hospital Course: Patient is an 81 year old male with a past medical history of diabetes, HLD, BPH, GERD, HTN, or anxiety who presented to the ED with complaints of abdominal pain accompanied with nausea and vomiting. CT scan showed a possible obstruction by a hernia. Hernia was reduced. IV were started and the patient was placed on a clear liquid diet. Patient did experiencing some nausea and vomiting after starting clear liquids. Patient was given anti- emetics which did help. He has also
--- NOTE | 2022-02-03 07:30 | PM.DS ---
DS: Admitting Diagnosis Discharge Date 02/03/22 0730 Admitting Diagnosis hernia with obstruction DS: Discharge Diagnosis Discharge Diagnosis (1) Recurrent inguinal hernia of left side with obstruction: Onset Date: ~01/2022 Code(s): K40.31 - Unilateral inguinal hernia, with obstruction, without gangrene, recurrent Status: Acute Assessment and Plan: CT of the abdomen/pelvis Left inguinal hernia containing small bowel with small bowel obstruction Repeat abd xray shows Moderately distended small bowel. Inguinal hernia was reportedly reduced; consider additional follow-up or small bowel follow-through' Reports nausea with intake WBC 1.4 Surgery consulted refer to small-bowel obstruction Zofran for nausea Consider pain medications Caused by inguinal hernia CT indicates Left inguinal hernia containing small bowel with small bowel obstruction. No surgical intervention due to recent chemotherapy treatment 5 days ago. Continue IV fluids with clear liquid diet and ambulation (2) Diabetes mellitus: Code(s): E11.9 - Type 2 diabetes mellitus without complications Status: Acute Assessment and Plan: Glucose was 176 Continue sliding scale hypoglycemic protocol and Accu-Cheks Continue glipizide Will adjust medication as needed A1c 5.3 (3) HTN (hypertension): Code(s): I10 - Essential (primary) hypertension Status: Acute Assessment and Plan: BP 119/76 Slightly elevated Continue amlodipine 10 mg daily and triamterene/hctz , and metoprolol 25 mg daily with p.r.n. hydralazine with parameters Will adjust medication as needed Watch BP looks like he has some hypotension overnight (4) HLD (hyperlipidemia): Code(s): E78.5 - Hyperlipidemia, unspecified Status: Acute Assessment and Plan: Continue statin (5) GERD (gastroesophageal reflux disease): Code(s): K21.9 - Gastro-esophageal reflux disease without esophagitis Status: Acute Assessment and Plan: Started pantoprazole (6) Afib: Code(s): I48.91 - Unspecified atrial fibrillation Status: Acute Assessment and Plan: Controlled, sinus rhythm Continue metoprolol 25 mg daily, patient currently not on any anticoagulant. (7) Depression: Code(s): F32.A - Depression, unspecified Status: Acute Assessment and Plan: Continue mirtazapine (8) Anxiety: Code(s): F41.9 - Anxiety disorder, unspecified Status: Acute Assessment and Plan: Started Ativan (9) History of prostate cancer: Code(s): Z85.46 - Personal history of malignant neoplasm of prostate Status: Acute Assessment and Plan: Stage IV prostate cancer Currently receiving chemotherapy, last treatment 01/28/[address] Ahumada DS: Summary Hospital Course Hospital Course: Patient is an 81 year old male with a past medical history of diabetes, HLD, BPH, GERD, HTN, or anxiety who presented to the ED with complaints of abdominal pain accompanied with nausea and vomiting. CT scan showed a possible obstruction by a hernia. Hernia was reduced. IV were started and the patient was placed on a clear liquid diet. Patient did experiencing some nausea and vomiting after starting clear liquids. Patient was given anti-emetics which did help. He has also been experiencing diarrhea however, this is probably related to the gastric motility. His diet has been advanced and he has been able to tolerate a low fat diet. He is very eager to go home. Xray of the abdomen today shows improvement of the obstruction. Patient denies any chest pain, shortness of breath, nausea, vomiting, sweats, fevers, and chills. He is stable for DC at this time. Vital signs and labs are stable at this time. Potassium was reported to be at 2.8. Replacement has been ordered and given. Status at Discharge Functional stat
[2022-02-03 07:38] LABS: Alanine Aminotransferase 19 U/L (4-50); Albumin Level 3.4 g/dL (3.5-5.1); Alkaline Phosphatase 84 U/L (38-126); Anion Gap 7 mmol/L (8-16); Aspartate Amino Transferase 29 U/L (17-59); Bilirubin,Total 0.5 mg/dL (0.2-1.3); Blood Urea Nitrogen 19 mg/dL (9-20); Calcium 6.6 mg/dL (8.4-10.2); Carbon Dioxide 23 mmol/L (22-30); Chloride 108 mmol/L (98-107); Estimated CRCL calculation 66 ml/min; Estimated Glomerular Filt Rate > 60; Glucose 106 mg/dL (65-110); Magnesium 2.3 mg/dL (1.6-2.3); Potassium 2.8 mmol/L (3.4-5.0); Sodium 138 mmol/L (137-145)
[2022-02-03 07:48] LABS: Glucose Point of Care 110 mg/dl (65-105)
[2022-02-03 07:59] LABS: White Blood Count 1.6 K/mm3 (4.5-10.0)
[2022-02-03 08:01] VITALS: PULSE 92
[2022-02-03] MEDS: PANTOPRAZOLE SODIUM IV 40 MG VIAL IV PUSH (08:01)
[2022-02-03] MEDS: FOLIC ACID 0.4 MG TABLET 0.8 MG PO (08:01)
[2022-02-03] MEDS: METOPROLOL SUCCINATE EXT REL 25 MG TABCR PO (08:01)
[2022-02-03] MEDS: TRIAMTERENE 37.5 MG/HCTZ 25 MG (MAXZIDE) TABLET 1 TAB PO (08:01)
[2022-02-03] MEDS: PRAVASTATIN SODIUM 20 MG TABLET 40 MG PO (08:01)
[2022-02-03] MEDS: FINASTERIDE 5 MG TABLET PO (08:01)
[2022-02-03] MEDS: amLODIPine BESYLATE 5 MG TABLET 10 MG PO (08:02)
[2022-02-03 08:08] LABS: Band Neutrophils Percent 16 % (0-6); Lymphocytes Absolute Manual 0.41 K/mm3 (1.1-4.5); Lymphocytes Percent Manual 26 % (18-44); Metamyelocytes Percent 11 %; Monocytes Absolute Manual 0.08 K/mm3 (0.1-0.90); Monocytes Percent Manual 5 % (3-9); Neutrophils Absolute Manual 0.92 K/mm3 (1.3-6.7); Neutrophils Percent Manual 42 % (46-73); Nucleated Red Blood Cells 5 %; Platelet Estimate Decreased (Adequate); Total Cells Counted 100
[2022-02-03 08:09] LABS: Anisocytosis 1+ (NORMAL); Tear Drop Cells 1+ (NORMAL)
[2022-02-03] MEDS: POTASSIUM CHLORIDE 20 MEQ TABLET 40 MEQ PO ×2 (08:19→16:06)
[2022-02-03] MEDS: POTASSIUM CHLORIDE INJ 40 MEQ in SODIUM CHLORIDE 0.9% IV 500 ML 130 MEQ IVPB (08:42)
[2022-02-03 11:38] LABS: Glucose Point of Care 123 mg/dl (65-105)
[2022-02-03 14:00] VITALS: BP 143/83; PULSE 87; RESP 20; TEMP 36.7; O2SAT 100
--- NOTE | 2022-02-03 14:34 | PM.PNGS ---
Progress Note: A&P Assessment and Plan (1) Recurrent inguinal hernia of left side with obstruction: Onset Date: ~01/2022 Code(s): K40.31 - Unilateral inguinal hernia, with obstruction, without gangrene, recurrent Status: Acute Assessment and Plan: Left inguinal hernia remains reduced and his bowels are moving. We will advance him to a low residue diet today. He can be discharged from our standpoint if he tolerates his diet. We will try to get ahold of Dr. Ahumada regarding planning surgery as an outpatient. The patient wishes to have his hernia repaired as soon as possible. We have discussed with him that we would like him medically optimized for an elective repair and can decide timing depending on his chemotherapy treatment and his Oncologist's recommendations. (2) Prostate cancer metastatic to bone: Onset Date: Unknown Code(s): C61 - Malignant neoplasm of prostate; C79.51 - Secondary malignant neoplasm of bone Status: Acute Assessment and Plan: Patient currently undergoing chemotherapy due to bone metastasis directed by Dr. Ahumada. Reportedly his next chemotherapy treatment is scheduled on February 18. is attempting to call Dr. Ahumada's office today to discuss his thoughts on optimal timing for surgery. (3) Complete small bowel obstruction: Code(s): K56.601 - Complete intestinal obstruction, unspecified as to cause Status: Deleted Assessment and Plan: [place] this was related to the left inguinal hernia, which is now reduced. Plain films improved this morning. Appears to be resolving. He is having diarrhea and his nausea has improved as well. Okay to advance his diet as tolerated and discharge when medically stable if tolerating his diet. Additional Plan I have discussed the patient's case and plan of care with . Subjective Subjective Date/Time Seen: 02/03/22 09:34 Patient reports: no new complaints, feels better and nausea (improved) Interval history: Patient seen and examined. He reports having a better night and feeling much better today. He reports that his nausea is improving to what he has been dealing with at baseline at home. He was able to tolerate a full liquid tray without any complaints this morning. He reports still having diarrhea every 1-2 hours and admits that he has not been checking his hernia after activity. No other complaints at this time. Review of Systems Gastrointestinal: Gastrointestinal: Reports as per HPI, Reports no additional gastrointestinal complaints, Denies abdominal pain, Denies bloating and Denies vomiting Exam Const: General: no acute distress and awake Orientation/consciousness: patient oriented x3 GI: Inspection: normal to inspection and non-distended GI Palp: Yes Soft to palpation, No Tenderness to palpation present (GI), No Guarding due to palpation present (GI) and No Rebound tenderness present Auscultation: normal bowel sounds Other: No palpable bulge in the left groin today, not tender in this area, difficult to appreciate a possible small defect in the left groin with straining Neuro: General: moves all extremities and no focal motor deficits Extrem: General: normal to inspection Psych: Insight: Good insight present (Psych) Judgement: Good judgement present (Psych) Objective Data Vital Signs Vital Signs: Vital Signs - 24 hr 02/02/22 22:00 02/03/22 06:00 02/03/22 08:01 Temperature 99.3 F 98.6 F Pulse Rate 87 86 92 Respiratory Rate 18 18 Blood Pressure 122/70 100/64 Pulse Oximetry 100 100 02/03/22 14:00 Temperature 98.0 F Pulse Rate 87 Respiratory Rate 20 Blood Pressure 143/83 H Pulse Oximetry 100 Intake/Output Intake/Output: Intake & Output 01/31/22 02/01/22 02/02/22 02/03/22 23:59 23:59 23:59 23:59 Intake Total 2812 2350 1480 Balance 2812 2350 1480 Meds/Results Medications: Active Medications Generic Name Dose Route Start Last Admin Trade Name
[2022-02-03 15:41] LABS: Potassium 3.2 mmol/L (3.4-5.0)
== END 2022-02-03 16:50 | disposition home health service (06) | DRG 394 ==
LOC: ANHED 10:04 → ANH3MEDSUR 02-02 10:00
PROVIDERS: Nurse Practitioner; Surgery; Admitting Provider Internal Medicine; Emergency Provider Emergency Medicine; PCP Internal Medicine; Visit Provider Nurse Practitioner
DX: K40.31 Unilateral inguinal hernia, with obstruction, without gangrene, recurrent (principal); C79.51 Secondary malignant neoplasm of bone; C61 Malignant neoplasm of prostate; E11.9 Type 2 diabetes mellitus without complications; I10 Essential (primary) hypertension; E78.5 Hyperlipidemia, unspecified; K21.9 Gastro-esophageal reflux disease without esophagitis; I48.91 Unspecified atrial fibrillation; F32.A Depression, unspecified; F41.9 Anxiety disorder, unspecified; N40.0 Benign prostatic hyperplasia without lower urinary tract symptoms; Z87.891 Personal history of nicotine dependence
CPT/HCPCS: 36415; 74019; 74177; 80048; 80053; 81003; 82948; 83036; 83605; 83690; 83735; 84132; 85025; 85055; 93005; 96361; 96374; 96375; 96376; 99285; A9270; C9113; G0378; J1200; J2405; J2765; J3480; J7030; J7040; Q9967

== ENCOUNTER 2022-02-17 00:21 | Day surgery (SDC) | payer MEDICARE, SELFPAY ==
[2022-02-10 10:31] VITALS: BMI 26.6
--- NOTE | 2022-02-10 10:45 | PC.NURSE ---
Report to the Outpatient Waiting Room, entrance under the green pavilion located off [facility], at time _1000_ on date _02/17/22_. OR Time: _1200_. - You and your visitor will be asked a series of questions to screen for COVID 19 for your protection. - A mask is required within the hospital. One visitor will be allowed to accompany the patient into the hospital. Patients visitor will be instructed to remain with patient at all times or leave the building. We will allow the visitor to come back to the postoperative area when patient is ready. Preoperative COVID Testing Requirements: NONE Patients may have clear liquids (water, carbonated beverages, clear teas, apple juice) until 3 hours prior to surgery (0900 AM) with a maximum of 20 ounces. - No food from midnight until time of surgery Take the following medications with a SIP of water the morning of surgery: _ALPRAZOLAM, AMLODIPINE, METOPROLOL, MIRTAZAPINE_ Medications to discontinue per ANESTHESIA - VITAMINS, FOLIC ACID, NIACIN 3 DAYS PRIOR TO SURGERY, Date to take last dose 02/13/22_ Please no deodorant, or body powder the day of surgery. No jewelry (including any body piercings) or valuables the day of surgery, leave them at home. Please take a shower or bath the night before, or the morning of, surgery with an antibacterial soap. Wear comfortable, loose fitting clothing. - Jewelry must be removed prior to entering the operating room. Rings and piercings that are not removed may be cut off. - The hospital will not accept responsibility for valuables. - Please leave all valuables, including medications, at home the day of surgery. If you are going home after surgery, a licensed truck driver instructor must drive you home. - NO public transportation without another adult. - We recommend that an adult stay with you for 24 hours following discharge. - We also recommend that you do not drive, make important decision, drink alcoholic beverages, or take any drugs that were not prescribed by your health care provider for at least 24 hours after your discharge time. Follow any additional instructions given to you from your surgeon. CARE[facility] SHOWER AM OF SURGERY Telephone instructions given to ____PT and asked if any additional questions and then verbalized understanding. Patient advised to call surgeon office or pre surgery nurse liaison [phone] if any additional questions.
[2022-02-17] VITALS (7 sets, daily range): BP systolic 93–127; BP diastolic 44–73; PULSE 56–86; RESP 16–25; TEMP 36.2–36.8; O2SAT 95–100
--- NOTE | 2022-02-17 07:34 | ECG_ITS ---
Measurements Intervals [place] Rate: 62 P: 187 AR: 239 QRS: -12 QRSD: 147 T: 13 QT: 488 QTc: 498 Interpretive Statements ATRIAL FLUTTER/TACHYCARDIA RIGHT BUNDLE BRANCH BLOCK ABNORMAL ECG Electronically Signed On 02-17-2022 10:43:11 CDT by Angelo Alan D.O.
[2022-02-17] MEDS: LACTATED RINGERS 1,000 ML 30 ML IV CONT ×2 (10:27→14:41)
[2022-02-17] MEDS: ACETAMINOPHEN 500 MG TABLET 1000 MG PO (10:28)
[2022-02-17] MEDS: KETOROLAC 15 MG/ML VIAL (*BKC) IV PUSH (10:28)
[2022-02-17 10:32] LABS: Glucose Point of Care 91 mg/dl (65-105)
--- NOTE | 2022-02-17 10:55 | WPDANESEPPF ---
Anes - Initial Pre Proc Eval Procedure: Operation Date: 02/17/22 12:00 Proposed Procedures p Open Repair of Recurrent Left Inguinal Hernia, Possible Mesh - Hunter Johnson MD Date/Time: 02/17/22 10:55 Surgeon: Hunter Johnson MD Pre Op Diagnosis: Recurrent Left Ing Hernia Patient Data Age: 81 Gender: M Height: 1.69 m Weight: 75.45 kg Last Vital Signs Temp 36.2 C L 02/17/22 10:01 Pulse 86 02/17/22 10:01 Resp 18 02/17/22 10:01 BP 127/66 02/17/22 10:01 Pulse Ox 100 02/17/22 10:01 Allergies Allergy/AdvReac Type Severity Reaction Status Date / Time No Known Allergies Allergy Verified 02/17/22 10:45 Home Medications Medication Instructions Recorded Confirmed Type alprazolam 0.25 mg PO Q8H PRN 02/01/22 02/17/22 History amlodipine 10 mg PO DAILY 02/01/22 02/17/22 History cholecalciferol (vitamin D3) 50 mcg PO DAILY 02/01/22 02/17/22 History finasteride 5 mg PO DAILY 02/01/22 02/17/22 History folic acid 800 mcg PO DAILY 02/01/22 02/17/22 History glipizide 5 mg PO DAILY 02/01/22 02/17/22 History metoprolol succinate [Toprol XL] 25 mg PO DAILY 02/01/22 02/17/22 History mirtazapine 15 mg PO HS 02/01/22 02/17/22 History niacin 500 mg PO QAM 02/01/22 02/17/22 History ondansetron HCl 4 mg PO Q8H PRN 02/01/22 02/17/22 History pravastatin 40 mg PO DAILY 02/01/22 02/17/22 History triamterene-hydrochlorothiazid 37.5 tablet PO DAILY 02/01/22 02/17/22 History [Maxzide-25mg] esomeprazole magnesium 40 mg PO DAILY #60 cap 02/03/22 02/17/22 Rx Laboratory Tests 02/17/22 10:25 POC Capillary Glucose 91 mg/dl mg/dl (65-105) Patient hx anesthesia problems: none Family hx anesthesia problems: none Results Review: All pre-operative results and documents have been reviewed as part of the pre-operative evaluation. 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) Surgical History Surgical History History of abdominal prostatectomy History of inguinal hernia repair, bilateral Family History Family History Mother Diabetes mellitus Other Family history of cardiovascular disease Family history of malignant neoplasm Social History Social History Smoking packs per day: 2 Smoking cigarettes per day: 40.0 Years smoked: 25 Smoking pack-years: 50.00 Smoking status: Former smoker Tobacco type: cigarettes Second hand tobacco smoke exposure: No Smoking end date: 10/18/81 Alcohol intake: never Substance use: never Substance use type: does not use Living arrangements: with family Spiritual care concerns: No Anes - Eval Final PreProcedure Day of Procedure 02/17/22 10:55 Patient weight: normal Heart: regular rate and rhythm Lungs: clear to auscultation Airway: Mallampati scale class II Neurological: other Last oral intake: >/= 8 hours ASA classification: IV Emergent: no Anesthetic plan: proceed Anesthesia type and monitoring: general GIVS and standard monitoring Results Review: All pre-operative results and documents have been reviewed as part of the pre-operative evaluation. Informed Consent: The patient's anesthetic plan and its attendant risks and benefits were discussed with the patient/family/POA. Questions were solicited and answers provided to the satisfaction of the patient/family/POA.
[2022-02-17 11:14] LABS: Basophils Percent Auto 0.3 % (0.2-1.2); Eosinophils Percent Auto 0.3 % (0-4.4); Hemoglobin 7.8 g/dL (14.0-18.0); Immature Granulocyte Absolute 0.02 K/mm3 (0.00-0.031); Immature Granulocyte Percent A 0.7 % (0-0.5); Immature Platelet Fraction Pct 5.6 % (0.9-11.2); Lymphocytes Percent Auto 16.3 % (18.3-44.2); Mean Corpuscular Hemoglobin 30.7 pg (26-34); Mean Corpuscular Volume 102.4 fl (80-100); Mean Platelet Volume 10.7 fl (7.4-10.4); Monocytes Absolute Auto 0.3 K/mm3 (0.1-0.6); Monocytes Percent Auto 10.5 % (2.6-8.5); Neutrophils Absolute Auto 2.2 K/mm3 (1.3-6.7); Neutrophils Percent Auto 71.9 % (45.5-73.1); Platelet Count Result 63 k/mm3 (150-375); Red Blood Count 2.54 M/mm3 (4.6-6.20); Red Cell Distribution Width 19.8 % (11.5-14.5); White Blood Count 3.1 K/mm3 (4.5-10.0)
--- NOTE | 2022-02-17 12:10 | WPDHPUPDATE1 ---
History and Physical Update Update Date/Time: 02/17/22 12:10 History and Physical has been reviewed, including an updated exam of the patient. There are NO changes in the patient's condition. Risks, benefits, and alternatives have been discussed and questions answered. Patient agrees to proceed with procedure.
[2022-02-17] MEDS: ceFAZolin 2 GM/D5W 50 ML 2 GM/50 ML BAG IVPB (12:17)
--- NOTE | 2022-02-17 15:02 | W.PM.PROC2 ---
Procedure Note - Detailed Date of Procedure 02/17/22 Pre-op Diagnosis Recurrent Left Ing Hernia Post-op Diagnosis Other (Recurrent left indirect inguinal hernia) Procedure Performed Open repair of a recurrent indirect left inguinal hernia Surgeon Hunter Johnson MD Supervisor Mapping FAUSTINO Louise, OR 1st assist Anesthesia Local (With a mixture of 1% xylocaine with epinephrine and 0.25% Marcaine plain) and Other (G IV SS with LMA) Indications Patient presented to the hospital approximately 2 weeks ago with an incarcerated left inguinal hernia that was able to be reduced. He had just been given chemotherapy 5 days prior to that. Therefore, I talked with his Medical oncologist and was felt that since he is at risk for recurrence of the incarceration and possible infection requiring urgent surgery, it would be better to do this hernia repair on an elective basis rather than wait and have to do it on an urgent basis when he may have recently had chemotherapy. Therefore, after seeing him in the office, confirming that his blood count was as good as it usually can be with his current problems, we decided to proceed with a open exploration of the left groin with repair of a recurrent left inguinal hernia. Findings Exploration found a small fairly long narrow indirect hernia which had an extension went below the inguinal ligament. Excess this extension extended hind structures front the ilioinguinal ligament. There was only some omental within the hernia sac upon discovery of it along anterior medial border the structures. There appeared to be intact over the inguinal floor Hesselbach's triangle. As expected review of his previous operative note I did find some well incorporated mesh some old Prolene sutures. Description of Procedure The patient was placed in the supine position on the operating room table. After induction of adequate GIVS anesthesia with the use of an LMA by [facility] Anesthesia staff, we carefully prepped the entire lower abdomen with chlorhexidine and scrotum and penis with Betadine. One sterile towel was placed underneath the scrotum. Four towels were placed around the left lower quadrant. Following this, a time-out was performed with the surgical team and the patient's surgical procedure and site was confirmed. We then carefully outlined a curvilinear incision in the left groin area. My inspection and palpation the previous scar was rather low in the groin. Therefore I made my transverse incision starting just a little to the left of midline and then extending it in a curvilinear fashion toward the anterior suprailiac spine. A curvilinear incision was made after introducing a mixture of local anesthetic, using 0.5% Marcaine plain and 1% Xylocaine with epinephrine as both an ilioinguinal nerve block and at the incision site with a 25 gauge needle. Following this, I carefully made the incision, and carried it down through the subcutaneous tissue. Shaina's fascia was identified and incised and then we identified the external oblique aponeurosis and the external ring. there did seem to be significant scarring in the area of the external ring and some old Prolene sutures were able to be found in this area. This corresponded to what I read in the operative note his previous surgery. Following this, the same mixture of local anesthetic was infiltrated underneath the external oblique aponeurosis and this was split in the direction of it's fibers with a #15 blade initially and then using Metzenbaum scissors. I then opened the external oblique to the external ring and then incised this somewhat posteriorly and superiorly exposing the the underlying cord structures staying in my dissection just superficial to them as I dissected superiorly. During this dissection I never did identify the ilioinguinal nerve. At the level of pubic tubercle I simply left the structure somewhat scarred to the underlying pubic bone edge of the ilioingu
[2022-02-18 07:42] LABS: Glucose Point of Care 95 mg/dl (65-105)
== END 2022-02-17 16:30 | disposition home or self-care (01) ==
PROVIDERS: Anesthesiology; PCP Internal Medicine; Visit Provider Surgery
PROC: (CPT 49520; principal; 2022-02-17 12:00)
DX: K40.91 Unilateral inguinal hernia, without obstruction or gangrene, recurrent (principal); F32.9 Major depressive disorder, single episode, unspecified; I48.91 Unspecified atrial fibrillation; E11.9 Type 2 diabetes mellitus without complications; E78.5 Hyperlipidemia, unspecified; Z92.21 Personal history of antineoplastic chemotherapy; C61 Malignant neoplasm of prostate; C79.51 Secondary malignant neoplasm of bone; Z90.79 Acquired absence of other genital organ(s); Z87.891 Personal history of nicotine dependence; I45.10 Unspecified right bundle-branch block; R00.0 Tachycardia, unspecified
CPT/HCPCS: 49520; 36415; 82948; 85025; 85055; 86850; 86900; 86901; 88300; 88302; 93005; A9270; C1781; J0690; J1100; J1885; J2370; J2405; J2704; J3010; J7120

== ENCOUNTER 2022-04-16 09:49 | Inpatient (IN) | payer MEDICARE, SELFPAY ==
[2022-04-16] VITALS (31 sets, daily range): BP systolic 84–129; BP diastolic 50–77; PULSE 88–129; RESP 12–24; TEMP 35.8–36.8; O2SAT 98–100; BMI 26.3
--- NOTE | ~2022-04-16 | XR_ITS ---
XR chest port-a-cath/central 04/16/2022 11:48 Indication: Chest pain. Right-sided central line placement. Procedure: AP portable chest Comparison: No prior studies for comparison. Findings: Heart size normal. Right IJ central line tip in the SVC. Heart size normal. There are patch y bilateral areas of sclerosis of the ribs, consistent with metastatic disease. There is a left shoul keegan arthroplasty. No focal pneumonia, edema, pleural effusion or pneumothorax. Impression: 1: Patchy sclerosis of the ribs, consistent with metastatic disease. Reviewed, dictated and finalized at location A. Impression: 1: Patchy sclerosis of the ribs, consistent with metastatic disease.
--- NOTE | 2022-04-16 09:50 | PC.NURSE ---
ems iniated ns infusing wide open without difficulty. pt continues to c/o chest pain and nausea
--- NOTE | 2022-04-16 09:58 | ECG_ITS ---
Measurements Intervals [place] Rate: 123 P: [place]: 0 QRS: -40 QRSD: 132 T: -17 QT: 290 QTc: 416 Interpretive Statements ATRIAL FLUTTER/TACHYCARDIA WITH RAPID VENTRICULAR RESPONSE MARKED LEFT AXIS DEVIATION [QRS AXIS < -30] RIGHT BUNDLE BRANCH BLOCK [120+ ms QRS DURATION, UPRIGHT V1, 40+ ms S IN I/aVL/V4/V5/V6] MARKED ST DEPRESSION, CONSIDER SUBENDOCARDIAL INJURY [0.2+ mV ST DEPRESSION] COMPARED TO ECG 02/17/2022 10:37:21 LEFT-AXIS DEVIATION NOW PRESENT THE PATIENT IS TACHYCARDIC ST SEGMENT CHANGES ARE MORE MARKED Electronically Signed On 04-16-2022 18:02:12 CDT by Nellie Bustillo M.D.
--- NOTE | 2022-04-16 10:01 | PC.NURSE ---
rectal temp 97.9 guiac positive stool.
[2022-04-16] MEDS: SODIUM CHLORIDE 0.9% IV 500 ML 999 ML IV CONT (10:06)
[2022-04-16 10:11] LABS: Mean Corpuscular Hemoglobin 26.8 pg (26-34); Mean Corpuscular Volume 92.3 fl (80-100); Mean Platelet Volume 10.8 fl (7.4-10.4); Platelet Count Result 117 k/mm3 (150-375); Red Blood Count 1.42 M/mm3 (4.6-6.20); Red Cell Distribution Width 21.9 % (11.5-14.5); White Blood Count 5.3 K/mm3 (4.5-10.0)
[2022-04-16] MEDS: ONDANSETRON INJ 4 MG/2 ML VIAL IV PUSH ×3 (10:12→20:45)
[2022-04-16 10:16] LABS: Glucose Point of Care 181 mg/dl (65-105)
[2022-04-16 10:20] LABS: Hemoglobin 3.8 g/dL (14.0-18.0)
[2022-04-16 10:21] LABS: Hematocrit 13.1 % (42.0-52.0)
[2022-04-16 10:26] LABS: Alanine Aminotransferase 22 U/L (6-50); Albumin Level 2.7 g/dL (3.5-5.1); Alkaline Phosphatase 110 U/L (38-126); Anion Gap 14 mmol/L (8-16); Aspartate Amino Transferase 37 U/L (17-59); Bilirubin,Total < 0.1 mg/dL (0.2-1.3); Blood Urea Nitrogen 55 mg/dL (9-20); Calcium 7.6 mg/dL (8.4-10.2); Carbon Dioxide 14 mmol/L (22-30); Chloride 112 mmol/L (98-107); Estimated CRCL calculation 51 ml/min; Estimated Glomerular Filt Rate > 60; Glucose 187 mg/dL (65-110); Magnesium 2.1 mg/dL (1.6-2.3); Potassium 4.8 mmol/L (3.4-5.0); Sodium 140 mmol/L (137-145)
[2022-04-16 10:31] LABS: INR 1.7; Prothrombin Time 19.1 Seconds (11.1-14.7)
[2022-04-16 10:32] LABS: Partial Thromboplastin Time 31.2 SECONDS (22.3-36.8)
[2022-04-16 10:35] LABS: Anisocytosis 2+ (NORMAL); Atypical Lymphocytes Present; Band Neutrophils Percent 3 % (0-6); Eosinophils Absolute Manual 0.05 K/mm3 (0.02-0.5); Eosinophils Percent Manual 1 % (0-4); Hypochromasia 2+ (NORMAL); Lymphocytes Absolute Manual 0.84 K/mm3 (1.1-4.5); Metamyelocytes Percent 1 %; Neutrophils Absolute Manual 4.34 K/mm3 (1.3-6.7); Neutrophils Percent Manual 79 % (46-73); Ovalocytes 1+ (NORMAL); Platelet Estimate Adequate (Adequate); Poikilocytosis 2+ (NORMAL); Total Cells Counted 100
[2022-04-16 10:37] LABS: Troponin I < 0.012 ng/mL (0.000-0.034)
[2022-04-16 10:42] LABS: Lactic Acid Reflex 5.4 mmol/L (0.7-2.0)
--- NOTE | 2022-04-16 10:45 | PM.CNCAR ---
Assessment and Plan Assessment and plan (1) Angina at rest: Code(s): I20.8 - Other forms of angina pectoris Status: Acute Assessment and Plan: The patient is having chest pain and ischemic ST depression due to the stress of his severe anemia, and hypotension. May have some underlying CAD Fortunately the 1st troponin was negative Treatment is to treat the underlying stressors by providing blood transfusions etc.. Of course, due to the hypotension, unable to give any nitroglycerin, beta-jose guadalupe, and due to the GI bleed unable to use any aspirin etc.. No indication for emergent cardiac catheterization. (2) Hemorrhagic shock: Code(s): R57.8 - Other shock Status: Acute Assessment and Plan: Patient is in shock due to volume depletion and severe anemia Received 1.5 L IV fluids Transfusion pending May need vasopressin/Levophed for support (3) Atrial flutter: Code(s): I48.92 - Unspecified atrial flutter Status: Acute Assessment and Plan: History of AFib/flutter, not anticoagulated, previously with a controlled rate. Now tachycardic but this may be physiologic, due to his severe anemia Will re-evaluate after the 1st unit of blood and if no better consider digoxin if blood pressure still low, or amiodarone if BP has improved. (4) Upper GI bleed: Code(s): K92.2 - Gastrointestinal hemorrhage, unspecified Status: Acute Assessment and Plan: Acute upper GI bleed with severe anemia Dr. Hilario has been consulted Blood transfusions stat (5) Anemia: Code(s): D64.9 - Anemia, unspecified Status: Acute Assessment and Plan: Profound anemia Plan Patient seen emergently in the emergency room, discussed with patient's nurse, ER physician, and patient's family. He is extremely ill and there is high likelihood of untoward outcome. History of Present Illness History of Present Illness Consult date/time: 04/16/22 10:45 Reason For Visit: weakness, nausea & diarrhea Narrative: Yuri Iyer is an 81-year-old male whom I was asked to see emergently by the ER physician for my advice and opinion regarding his chest pain and EKG changes, in consultation. Mr. Iyer has prostate cancer with metastatic disease to the bones and has chronic back pain. He has been taking a lot of ibuprofen and Aleve. Over the last few days he has been feeling very weak and dizzy and has had trouble walking. Yesterday started having some chest discomfort which has been continuous and worse this morning. Some abdominal pain as well. In the ER he was guaiac positive, then had a very large which melanotic gelatinous stool. His H&H is 4/13. His blood pressures been in the 80s and he has been given 1.5 L of normal saline. A unit of uncross matched blood is pending, and then further cross-matched blood has been ordered. The ER physician is about to place a central line. Dr. Hilario has been consulted. There is no history of atherosclerotic heart disease but Mr. Iyer has had some atrial fibrillation (not on anticoagulation) hypertension and diabetes. His had some anemia in the past but no overt GI bleeding. Review of Systems Constitutional: Constitutional: Reports fatigue, Reports lethargy and Reports weakness Comments: Patient is feeling terrible Eyes: Eyes: Reports no additional eye complaints ENT: Denies epistaxis Cardiovascular: Cardiovascular: Reports chest pain, Reports lightheadedness and Reports palpitations Respiratory: Respiratory: Reports dyspnea Gastrointestinal: Gastrointestinal: Reports abdominal pain and Reports melena Musculoskeletal: Musculoskeletal: Reports back pain Integumentary/Breasts: Skin/Breast: Reports system reviewed and no additional complaints, except as docu Neurologic: Reports abnormal gait (Too weak to walk recently)
--- NOTE | 2022-04-16 11:00 | PC.NURSE ---
dr elias at bedside for central line placement
--- NOTE | 2022-04-16 12:03 | ED.WEAKNESS ---
HPI - Weakness General Chief complaint: Weakness Stated complaint: weakness, nausea & diarrhea Time Seen by Provider: 04/16/22 09:54 Source: patient History of Present Illness HPI Narrative: Patient presents with weakness and chest pain. Patient has a history of metastatic prostate cancer as well as hypertension and hyperlipidemia. Patient ports he felt very weak last night symptoms got progressively worse and he also has right-sided chest pain achy, constant no clear aggravating or alleviating factors. Worse in general he feels very ill and unwell. Symptoms are associated with shortness of breath. Feels nauseous but denies any vomiting denies any diarrhea or blood in his stool. Denies any recent fevers, cough, congestion. Related Data Home Medications Medication Instructions Recorded Confirmed alprazolam 0.25 mg tablet 0.25 mg PO Q8H PRN Anxiety 02/01/22 04/16/22 amlodipine 10 mg tablet 10 mg PO DAILY 02/01/22 04/16/22 cholecalciferol (vitamin D3) 50 50 mcg PO DAILY 02/01/22 04/16/22 mcg (2,000 unit) capsule finasteride 5 mg tablet 5 mg PO DAILY 02/01/22 04/16/22 folic acid 1 mg tablet 800 mcg PO DAILY 02/01/22 04/16/22 glipizide 5 mg tablet 5 mg PO DAILY 02/01/22 04/16/22 metoprolol succinate 25 mg 25 mg PO DAILY 02/01/22 04/16/22 tablet,extended release 24 hr (Toprol XL) mirtazapine 15 mg disintegrating 15 mg PO HS 02/01/22 04/16/22 tablet niacin 500 mg tablet,extended 500 mg PO QAM 02/01/22 04/16/22 release ondansetron HCl 4 mg tablet 4 mg PO Q8H PRN Nausea 02/01/22 04/16/22 pravastatin 40 mg tablet 40 mg PO DAILY 02/01/22 04/16/22 triamterene 37.5 1 tablet PO DAILY 02/01/22 04/16/22 mg-hydrochlorothiazide 25 mg tablet (Maxzide-25mg) diphenoxylate-atropine 2.5 1 tablet PO PRN Diarrhea 04/16/22 04/16/22 mg-0.025 mg tablet esomeprazole magnesium 20 mg 20 mg PO QAM 04/16/22 04/16/22 capsule,delayed release megestrol 800 mg/20 mL (20 mL) 800 mg PO DAILY 04/16/22 04/16/22 oral suspension metoclopramide HCl 10 mg tablet 10 mg PO TID 04/16/22 04/16/22 vitamin B12 0.5 mg-folic acid 1 mg 1 tablet PO DAILY 04/16/22 04/16/22 tablet Allergies Allergy/AdvReac Type Severity Reaction Status Date / Time No Known Allergies Allergy Verified 03/04/22 10:35 Review of Systems Review of Systems: CONSTITUTIONAL: Denies fever, chills, or sweats. EYES: Denies visual changes, redness, or discharge. ENT: Denies rhinorrhea, congestion, sore throat, or otalgia. CARDIOVASCULAR: Right-sided chest pain RESPIRATORY: Shortness of breath GASTROINTESTINAL: Denies abdominal pain, nausea, vomiting, or diarrhea. GENITOURINARY: Denies dysuria or hematuria. SKIN: Denies rash or itching. MUSCULOSKELETAL: Denies back pain, joint pain, or myalgia. NEUROLOGIC: Denies headache, numbness, dizziness, or weakness. PSYCHIATRIC: Denies anxiety or depression. 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
[2022-04-16] MEDS: TUBING, BLOOD PLUM PUMP TUBING XX (12:22)
[2022-04-16 13:19] LABS: Reflex Lactic Acid Yes or No Add Lactic
--- NOTE | 2022-04-16 13:25 | PC.NURSE ---
Report received by FAUSTINO Dumont with the ED department at 1316. Patient to go to ICU room 2.
--- NOTE | 2022-04-16 13:35 | WPDCNINT ---
Assessment and Plan Assessment and plan (1) Anemia: Code(s): D64.9 - Anemia, unspecified Status: Acute Assessment and Plan: Patient presented with generalized weakness, difficulty in walking, nausea vomiting and diarrhea, complained of black stool, chest discomfort -symptomatic anemia -hemoglobin was 3.9 in the ER and his systolic blood pressures were in the 80s -patient received 1.5 L of IV fluid bolus and 2 units of packed RBCs improvement in blood pressure -patient to get 2 more units of packed RBCs, have asked the bedside RN to give him the 3rd unit and recheck his blood counts. -INR is 1.7 -lactic acid was 5.4, will repeat lactic levels (2) Upper GI bleed: Code(s): K92.2 - Gastrointestinal hemorrhage, unspecified Status: Acute Assessment and Plan: Stool for guaiac was positive in the ER -patient also complaining of black stools ongoing for about 3-4 weeks -patient has been on Aleve and or ibuprofen for over a month for his chronic back pain -noted to have severe anemia as above -GI has been consulted and await evaluation -started patient on PPI infusion (3) Angina at rest: Code(s): I20.8 - Other forms of angina pectoris Status: Acute Assessment and Plan: Patient also complained of some chest discomfort in the ER -after receiving packed RBCs and fluids, chest discomfort has resolved -EKG showed some ST depressions -troponin x1 were negative -appreciate cardiology evaluation and recommendation -chest pain and EKG changes likely related to severe anemia -will hold beta-jose guadalupe, nitroglycerin at this time, no indication for emergent cardiac catheterization (4) Afib: Code(s): I48.91 - Unspecified atrial fibrillation Status: Acute Assessment and Plan: Patient with history of AFib/a flutter not on any anticoagulation, currently rate controlled -initially was tachycardic in the ER which could be related to severe anemia -patient in and out of AFib and sinus rhythm (5) Hemorrhagic shock: Code(s): R57.8 - Other shock Status: Acute Assessment and Plan: Patient was initially hypotensive in the ER along with tachycardia likely related to severe anemia -once he was fluid resuscitated and given packed RBCs -heart rate is in the 80s - systolic blood pressures in the 110s to 120s. (6) DVT prophylaxis: Code(s): Z29.9 - Encounter for prophylactic measures, unspecified Status: Acute Assessment and Plan: SCDs Plan Start PPI infusion SCDs NPO except ice chips Additional Plan Discussed with patient and son at bedside and updated the patient's condition and plan of care. I did tell him that he is going to be receiving additional packed RBCs, PPI infusion to protect the lining of the stomach, GI doctors to evaluate. I answered all questions Code status: Full code Critical care time spent: 46 minutes This dictation may have been done utilizing a voice recognition system. Attempts have been made to correct errors. However, there may be uncorrected grammatical, spelling, and recognition errors present. Due to a high probability of clinically significant, life threatening deterioration, the patient required my highest level of preparedness to intervene emergently and I personally spent this critical care time directly and personally managing the patient. This critical care time included obtaining a history; examining the patient; pulse oximetry; ordering and review of studies; arranging urgent treatment with development of a management plan; evaluation of patient's response to treatment; frequent reassessment; and discussions with other providers. It was exclusive of separately billable procedures and treating other patients and teaching time. Please see Assessment and Plan section and the rest of the note for further information on patient assessment and treatment Night Patrol Inspector Consult Note Consult date: 04/16/22 Reason for consult:
--- NOTE | 2022-04-16 13:49 | ADMGEN ---
This patient, Yuri Iyer, was admitted to Intensive Care Unit-2 AT 1336 from the ED. Patient/family oriented to hospital policies and general routines including ID bracelet, bed and alarms, visiting hours, pain management, procedures, bathroom and other care routines, personal items, smoking policy, room service/diet, and visiting hours. Information on how to activate the Rapid Response Team has been discussed. Patient/Family are encouraged to report perceived risks to care and to ask questions if they do not understand what they are told or what they should do.
[2022-04-16] MEDS: PANTOPRAZOLE SODIUM IV 40 MG VIAL 80 MG IV PUSH (14:24)
[2022-04-16 14:28] LABS: Lactic Acid 2.1 mmol/L (0.7-2.0)
[2022-04-16] MEDS: CENTRAL LINE FLUSH 10 ML IV PUSH ×2 (14:40→20:46)
[2022-04-16 14:54] LABS: Glucose Point of Care 182 mg/dl (65-105)
[2022-04-16] MEDS: SODIUM CHLORIDE 0.9% IV 250 ML 30 ML IV CONT (15:09)
--- NOTE | 2022-04-16 15:14 | ECHO_ITS ---
Patient Info Name: Yuri Iyer Age: 81 years : 1940 Gender: Male Ht: 67 in Wt: 167 lbs BSA: 1.91 m2 HR: 96 bpm BP: 117 / 63 mmHg Heart Rhythm: Indeterminant Technical Quality: Poor Exam Date: 04/16/2022 4:28 PM Exam Location: [facility] Patient Status: Inpatient Admit Date: 04/16/2022 Staff Ordering Physician: Nellie Bustillo MD [employer] Caretaker: Meeta Thomas RDCS Attending Provider: Anival Ramirez MD Referring Physician: Iwona BOLDEN; Exam Type: CA echo dop color flow w con Study Info Indications - abn ekg chest pain Complete two-dimensional, color flow and Doppler transthoracic echocardiogram is performed with contrast to opacify the left ventricle and to improve the deliniation of the left ventricle endocardial borders. Contrast/Agitated Saline Contrast/Ag. Saline: Definity Amount: 2.00 ml Administered By: Meeta Thomas [facility] Existing IV Access: Yes Reason for Poor Study: patient body habitus Summary 1. Normal left ventricular size with mild concentric hypertrophy. Good systolic function of all segments with no segmental wall motion abnormalities. Ejection fraction is 60-65%. Diastolic dysfunction is indeterminate. 2. Left atrial chamber dimension is mildly enlarged. 3. Right atrial chamber dimension is mildly enlarged. 4. There is moderate to severe aortic valve stenosis with a peak velocity of 3.83 meters/s, mean gradient of 42 mmHg, and aortic valve area of 1.07 cm2. Moderate aortic valve calcification. 5. There is mild tricuspid valve regurgitation. 6. Moderate pulmonary hypertension, estimated pulmonary arterial systolic pressure is 49 mmHg. 7. Rhythm indeterminate. 8. Technically difficult study; IV definity echo contrast used. Left Ventricle Left ventricular chamber dimension is normal. Left ventricular systolic function is normal, estimated at 60-65%. There is mildly increased left ventricular wall thickness. Left ventricular septal wall motion is normal. The left ventricular diastolic function is indeterminate. Right Ventricle Right ventricular chamber dimension is normal. Right ventricular systolic function is normal. Left Atria Left atrial chamber dimension is mildly enlarged. Right Atria Right atrial chamber dimension is mildly enlarged. Aortic Valve The aortic valve is trileaflet. There is no aortic valve sclerosis. There is moderate to severe aortic valve stenosis with a peak velocity of 3.83 meters/s, mean gradient of 42 mmHg, and aortic valve area of 1.07 cm2. Moderate aortic valve calcification. There is mild aortic valve regurgitation. There is moderate aortic valve calcification. Pulmonic Valve The pulmonic valve is normal. There is no pulmonic valve stenosis. There is no pulmonic regurgitation. Mitral Valve The mitral valve has normal leaflets. There is no mitral valve stenosis. There is trace mitral valve regurgitation. Tricuspid Valve The tricuspid valve leaflets are normal. There is no significant tricuspid valve stenosis. There is mild tricuspid valve regurgitation. Moderate pulmonary hypertension, estimated pulmonary arterial systolic pressure is 49 mmHg. Pericardium/Pleural The pericardium appears normal. There is no pericardial effusion. Inferior Vena Cava Normal inferior vena cava with >50% collapse upon inspiration consistent with Empty right atrial pressure, 10 mmHg. Aorta The aortic root size
--- NOTE | 2022-04-16 15:23 | WPDGICN ---
Assessment and Plan Assessment and plan (1) Upper GI bleed: Code(s): K92.2 - Gastrointestinal hemorrhage, unspecified Status: Acute Assessment and Plan: based on his history and use of NSAIDs, I suspect that he has upper gastrointestinal bleed due to ulceration. I will schedule him for EGD to be done tomorrow. (2) Anemia: Code(s): D64.9 - Anemia, unspecified Status: Acute Assessment and Plan: Although he has been anemic with low platelets and white blood count in the last few months due to his bony metastases and radiation therapy, the fact that the other components have improved while the red blood count has dropped, suggest that there is definitely an element of blood loss anemia, which will be investigated, beginning with EGD. I told that he may end up needing a colonoscopy depending on if we find something in the upper gastrointestinal tract or not He is receiving blood transfusions. He is going to receive his 3rd unit soon. (3) Atrial flutter: Code(s): I48.92 - Unspecified atrial flutter Status: Acute Assessment and Plan: he has not at this time on any anticoagulation. (4) Hemorrhagic shock: Code(s): R57.8 - Other shock Status: Acute Assessment and Plan: Initial blood pressure was 84/64. Has improved considerably. (5) Prostate cancer metastatic to bone: Onset Date: Unknown Code(s): C61 - Malignant neoplasm of prostate; C79.51 - Secondary malignant neoplasm of bone Status: Acute Assessment and Plan: Unfortunately he has developed bony metastases which have been treated by . GI Consult Note Consult date/time: 04/16/22 15:23 HPI: Yuri Iyer is a 81 year old male who presented to the emergency room this morning with weakness and some shortness of breath. He has been nauseated lately. He denies vomiting. He has been found to be anemic with a hemoglobin of 3.8. Not long ago was 7.8. He is known to have prostate cancer and has bone metastases which she had been receiving radiation therapy and chemotherapy. The chemotherapy was held when he had surgery for an incarcerated hernia a couple months ago. He denies seeing blood his stools but he states his stools have been dark recently. His often checks his stools because she helps change his depends, and she states that she has seen no red blood and was not aware that they were darker. He admits to taking Aleve 2 to 3 times a day for the past couple weeks because of pain related to his bone cancer. He also has been using ibuprofen and Tylenol. He often takes he has an empty stomach. He has never had an ulcer before. He has never had colon problems. His last colonoscopy was at least 10 years ago. He had lost some weight but was placed on mirtazapine and has gained about 10 lb back. His noted that he was getting 2 separate prescriptions for mirtazapine from two different physicians, with a total dose of 45 mg per day. This had him being very drowsy the next morning. In January his white blood count was as low as 1400 but now it is up over 5000 in the normal range. Likewise his platelet count which was low has improved. Review of Systems Review of Systems: All systems reviewed & are unremarkable except as noted in HPI and below PMFSH Past Medical History Medical History Afib Depression Diabetes mellitus History of prostate cancer HLD (hyperlipidemia) HTN (hypertension) Prostate cancer metastatic to bone (Unknown) Surgical History Surgical History H/O inguinal hernia repair Open repair of a recurrent indirect left inguinal hernia 02/17/22 History of abdominal prostatectomy History of inguinal hernia repair, bilateral Family History Family History Mother Diabetes mellitu
[2022-04-16] MEDS: PERFLUTREN LIPID MICROSPHERES 1.5 ML VIAL DILUTED TO 10 ML TOTAL VOLUME IV PUSH (16:45)
--- NOTE | 2022-04-16 18:30 | PM.IMHP ---
H&P: HPI History of Present Illness Date/Time: 04/16/22 18:30 Chief Complaint: Weakness. Narrative: This is an 81-year-old male with paroxysmal atrial fibrillation, hypertension, hyperlipidemia, metastatic prostate cancer, and diabetes who presented to the emergency department for evaluation of weakness. He has not been feeling well for couple of days with generalized malaise, weakness, nausea, and dark loose stools. Yesterday he started having some midsternal chest discomfort and he was feeling lightheaded and dizzy when walking. He was hypotensive on arrival to the ER with a hemoglobin of 3.9 and he passed a large dark stool not long after arrival. He has since been transfused 2 units of packed red blood cells is been started on Protonix with improvement in his blood pressures. With further questioning he does admit to taking at least 2 Aleve a day, sometimes more, for generalized aches and pains. He has not had any further episodes of chest pain though his troponin is elevated just above 5.0 and his EKG does demonstrate some ischemic changes. He has no history of coronary artery disease but does have a history of paroxysmal atrial fibrillation. Review of Systems Review of Systems: Twelve systems were reviewed. He has been feeling lightheaded last couple of days. He has not had any falls or near syncopal or syncopal episodes. No recent cold or flu symptoms. Abdomen has been a bit bloated with some belching though he denies overt abdominal pain. He has no prior history of peptic ulcer disease. Except as documented, all other systems were reviewed and are negative. [facility] Past Medical History Medical History (Updated 04/16/22 @ 22:38 by Naomie Klein PA-C) Depression Hyperlipidemia Hypertension Paroxysmal atrial fibrillation Prostate cancer metastatic to bone Type 2 diabetes mellitus Surgical History Surgical History (Updated 04/16/22 @ 22:33 by Naomie Klein PA-C) History of abdominal prostatectomy History of inguinal hernia repair, bilateral History of left shoulder replacement Family History Family History Mother Diabetes mellitus Father Lymphoma Family history of malignant neoplasm Sibling Family history of malignant neoplasm Other Family history of malignant neoplasm Other Family history of cardiovascular disease Social History Social History (Updated 04/16/22 @ 22:33 by Naomie Klein PA-C) Social History: Surrogate decision maker: Coleen Iyer, spouse. Code status: Do not resuscitate. Smoking packs per day: 1.5 Smoking cigarettes per day: 30.0 Years smoked: 15 Smoking pack-years: 22.50 Smoking status: Former smoker Tobacco type: cigarettes, cigars and smokeless tobacco Second hand tobacco smoke exposure: Yes Smoking end date: 10/18/81 Alcohol intake: never Substance use: never Substance use type: does not use Living arrangements: with family Occupation/Education: retired Spiritual care concerns: No Meds Home Medications and Allergies Home Medications Medication Instructions Recorded Confirmed Type alprazolam 0.25 mg tablet 0.25 mg PO Q8H PRN Anxiety 02/01/22 04/16/22 History amlodipine 10 mg tablet 10 mg PO DAILY 02/01/22 04/16/22 History cholecalciferol (vitamin D3) 50 50 mcg PO DAILY 02/01/22 04/16/22 History mcg (2,000 unit) capsule finasteride 5 mg tablet 5 mg PO DAILY 02/01/22 04/16/22 History folic acid 1 mg tablet 800 mcg PO DAILY 02/01/22 04/16/22 History glipizide 5 mg tablet 5 mg PO DAILY 02/01/22 04/16/22 History metoprolol succinate 25 mg 25 mg PO DAILY 02/01/22 04/16/22 History tablet,extended release 24 hr (Toprol XL) mirtazapine 15 mg disintegrating 15 mg PO HS 02/01/22 04/16/22 History tablet niacin 500 mg tablet,extended 500 mg PO QAM 02/01/22 04/16/22 History release ondansetron HCl 4 mg tablet 4 mg PO Q8H PRN Nausea 02/01/22 04/16/22 History prava
[2022-04-16 18:54] LABS: Hematocrit 22.3 % (42.0-52.0); Hemoglobin 7.2 g/dL (14.0-18.0)
[2022-04-16 19:52] LABS: Glucose Point of Care 155 mg/dl (65-105)
[2022-04-16 20:14] LABS: Add Urine Microscopic? NO; Appearance Urine Clear (Clear); Bilirubin Urine Negative (Negative); Blood Urine Negative (Negative); Color Urine Light Yellow (Yellow); Glucose Urine UA Negative (Negative); Ketones Urine Negative (Negative); Leukocyte Esterase Ur Negative LEU/UL (Negative); Nitrate Urine Negative (Negative); Protein Urine Negative (Negative); Specific Grav Ur 1.015 (1.001-1.035); Urobilinogen Urine 0.2 mg/dL (<2.0)
[2022-04-17] VITALS (16 sets, daily range): BP systolic 101–120; BP diastolic 58–76; PULSE 73–110; RESP 14–20; TEMP 36.2–37.1; O2SAT 99–100
[2022-04-17] MEDS: ALPRAZolam (*CRX) 0.25 MG TABLET PO (01:37)
[2022-04-17 01:43] LABS: Glucose Point of Care 136 mg/dl (65-105)
[2022-04-17 01:45] LABS: Hematocrit 22.3 % (42.0-52.0); Hemoglobin 7.1 g/dL (14.0-18.0)
[2022-04-17] MEDS: CENTRAL LINE FLUSH 10 ML IV PUSH ×3 (05:10→20:30)
[2022-04-17 05:16] LABS: Hematocrit 22.6 % (42.0-52.0); Hemoglobin 7.3 g/dL (14.0-18.0); Immature Platelet Fraction Pct 4.1 % (0.9-11.2); Mean Corpuscular HGB Conc 32.3 g/dl (32-36); Mean Corpuscular Hemoglobin 28.2 pg (26-34); Mean Corpuscular Volume 87.3 fl (80-100); Mean Platelet Volume 10.8 fl (7.4-10.4); Platelet Count Result 75 k/mm3 (150-375); Red Blood Count 2.59 M/mm3 (4.6-6.20); Red Cell Distribution Width 18.2 % (11.5-14.5); White Blood Count 5.1 K/mm3 (4.5-10.0)
[2022-04-17 05:31] LABS: Alanine Aminotransferase 20 U/L (6-50); Albumin Level 2.7 g/dL (3.5-5.1); Alkaline Phosphatase 120 U/L (38-126); Anion Gap 4 mmol/L (8-16); Aspartate Amino Transferase 75 U/L (17-59); Bilirubin,Total 0.3 mg/dL (0.2-1.3); Blood Urea Nitrogen 38 mg/dL (9-20); Calcium 7.2 mg/dL (8.4-10.2); Carbon Dioxide 20 mmol/L (22-30); Chloride 114 mmol/L (98-107); Estimated CRCL calculation 67 ml/min; Estimated Glomerular Filt Rate > 60; Glucose 128 mg/dL (65-110); Magnesium 1.9 mg/dL (1.6-2.3); Potassium 3.4 mmol/L (3.4-5.0); Sodium 138 mmol/L (137-145)
[2022-04-17] MEDS: CALCIUM GLUC 2,000 MG/NS 100ML 2,000 MG/100 ML BAG 100 MG IVPB (07:52)
[2022-04-17] MEDS: KCL 40 MEQ/WATER 100 ML 100 ML 25 ML IVPB (07:53)
[2022-04-17 08:01] LABS: INR 1.4; Prothrombin Time 16.8 Seconds (11.1-14.7)
[2022-04-17 08:02] LABS: Partial Thromboplastin Time 28.9 SECONDS (22.3-36.8)
--- NOTE | 2022-04-17 08:14 | ECG_ITS ---
Measurements Intervals [place] Rate: 89 P: -82 WI: 172 QRS: -7 QRSD: 149 T: 21 QT: 408 QTc: 497 Interpretive Statements ATRIAL FLUTTER/TACHYCARDIA WITH CONTROLLED VENTRICULAR RESPONSE RIGHT BUNDLE BRANCH BLOCK ABNORMAL ECG Electronically Signed On 04-17-2022 9:28:39 CDT by Angelo Alan D.O.
--- NOTE | 2022-04-17 08:34 | PM.PNCARD ---
Progress Note: A&P Additional Plan 81-year-old man with type 2 myocardial infarction substrate of significant aortic valve stenosis by exam and echo and profound anemia with which he was admitted. He is not a candidate for aggressive/invasive evaluation of his cardiovascular disease. He has a metastatic prostate cancer and DNR status. Other than resuscitation of his red cell volume there is no significant cardiac recommendations to make. Will see him as needed. Anival Castro MD [facility] Subjective Date/time seen: Date of service:04/17/22 08:34 Interval history: Follow-up visit in this 81-year-old man with: Chest pain, ST segment depression and elevation of troponin all consistent with type 2 myocardial infarction which appears to clearly be the result of profound anemia with which he was admitted. Patient with metastatic prostate cancer with bony involvement as well. [employer]andiser consultation yesterday plans are noted that he will be brought for endoscopy this morning. Hemoglobin is up to 7.3 after 3 units of packed red cells he is resting comfortably at this time and is asymptomatic. Exam Const: General: comfortable and no acute distress Other: Elevated gentleman sleeping flat in bed when I entered the room to see him. Upon awakening offers no cardiovascular complaints HENMT: Mouth: Yes moist mucous membranes Eyes: Sclera: sclerae normal Pupils: Equal, round and reactive pupils present Neck: Neck: supple and no JVD Resp: Effort & Inspection: normal respiratory effort Auscultation: clear to auscultation bilaterally Cardio: Rhythm: regular rhythm Other: patient has a grade 2 crescendo decrescendo murmur at the base radiating to the carotids, no diastolic murmur no gallop GI: GI Palp: Yes Soft to palpation Auscultation: normal bowel sounds Skin: General skin exam: normal color Neuro: Other: cognitively intact Extrem: Other: no edema adequate distal perfusion Objective Data Vital Signs Vital Signs: Vital Signs - 24 hr 04/16/22 09:49 04/16/22 09:56 04/16/22 10:13 Temperature 36.1 C L Pulse Rate 125 H 121 H Respiratory Rate 17 Blood Pressure 84/64 L Pulse Oximetry 100 Oxygen Delivery Room Air Fraction of Inspired Oxygen 04/16/22 10:57 04/16/22 11:13 04/16/22 11:22 Temperature 36.1 C L 36.1 C L 36.0 C L Pulse Rate 120 H 119 H 93 Respiratory Rate 16 16 12 Blood Pressure 91/67 L 105/73 105/73 Pulse Oximetry 100 100 100 Oxygen Delivery Fraction of Inspired Oxygen 04/16/22 11:28 04/16/22 11:28 04/16/22 11:38 Temperature 35.8 C L 36.6 C 36.1 C L Pulse Rate 97 96 101 H Respiratory Rate 12 18 18 Blood Pressure 123/68 117/67 121/55 L Pulse Oximetry 100 100 98 Oxygen Delivery Fraction of Inspired Oxygen 04/16/22 12:36 04/16/22 13:20 04/16/22 14:00 Temperature 36.6 C Pulse Rate 88 129 H 90 Respiratory Rate 16 20 18 Blood Pressure 128/58 L 129/62 115/65 Pulse Oximetry 100 100 100 Oxygen Delivery Fraction of Inspired Oxygen 04/16/22 13:36 04/16/22 14:00 04/16/22 15:18 Temperature 36.6 C 36.6 C 36.4 C L Pulse Rate 96 96 101 H Respiratory Rate 19 15 17 Blood Pressure 119/65 117/63 91/77 L Pulse Oximetry 100 100 100 Oxygen Delivery Fraction of Inspired Oxygen 04/16/22 15:00 04/16/22 14:00 04/16/22 15:34 Temperature 36.6 C Pulse Rate 89 96 90 Respiratory Rate 19 14 Blood Pressure 114/71 110/74 Pulse Oximetry 100 100 Oxygen Delivery Fraction of Inspired Oxygen 04/16/22 16:34 04/16/22 16:00 04/16/22 17:34 Temperature 36.4 C 36.5 C Pulse Rate 88 88 88 Respiratory Rate 17 17 24 H Blood Pressure 109/66 110/65 116/76 Pulse Oximetry 100 100 100 Oxygen Delivery Fraction of Inspired Oxygen 04/16/22 17:48 04/16/22 16:00 04/16/22 18:00 Temperature 36.5 C Pulse Rate 88 88 88 Respiratory Rate 18 19 Blood Pressure 111/66 116/62 Pulse Oximetry 100 100 Oxygen Delivery Fraction of Inspi
--- NOTE | 2022-04-17 09:30 | WPDINTPN ---
Progress Note: A&P Assessment and Plan (1) Anemia: Code(s): D64.9 - Anemia, unspecified Status: Acute Assessment and Plan: Patient presented with generalized weakness, difficulty in walking, nausea vomiting and diarrhea, complained of black stool, chest discomfort -symptomatic anemia -hemoglobin was 3.9 in the ER and his systolic blood pressures were in the 80s -patient received 1.5 L of IV fluid bolus and 2 units of packed RBCs improvement in blood pressure -04/16/2022: Patient received total of 4 units of packed RBCs -INR is 1.4 this morning -initial lactic acid was 5.4, repeat lactic was 2.1 -H&H q.6 hours x4 (2) Upper GI bleed: Code(s): K92.2 - Gastrointestinal hemorrhage, unspecified Status: Acute Assessment and Plan: Stool for guaiac was positive in the ER -patient also complaining of black stools ongoing for about 3-4 weeks -patient has been on Aleve and or ibuprofen for over a month for his chronic back pain -noted to have severe anemia as above -appreciate GI evaluation recommendation -continue PPI infusion -patient scheduled for EGD this morning (3) Angina at rest: Code(s): I20.8 - Other forms of angina pectoris Status: Acute Assessment and Plan: Patient also complained of some chest discomfort in the ER -after receiving packed RBCs and fluids, chest discomfort has resolved -EKG showed some ST depressions -troponins elevated, likely related to type 2 infarct secondary to severe anemia and severe aortic stenosis -appreciate cardiology evaluation and recommendation -chest pain and EKG changes likely related to severe anemia -will hold beta-jose guadalupe, nitroglycerin at this time, no indication for emergent cardiac catheterization (4) Afib: Code(s): I48.91 - Unspecified atrial fibrillation Status: Acute Assessment and Plan: Patient with history of AFib/a flutter not on any anticoagulation at home currently rate controlled -initially was tachycardic in the ER which could be related to severe anemia -patient in and out of AFib and sinus rhythm (5) Hemorrhagic shock: Code(s): R57.8 - Other shock Status: Acute Assessment and Plan: Patient was initially hypotensive in the ER along with tachycardia likely related to severe anemia -once he was fluid resuscitated and given packed RBCs -heart rate is in the 80s - systolic blood pressures in the 110s to 120s. (6) DVT prophylaxis: Code(s): Z29.9 - Encounter for prophylactic measures, unspecified Status: Acute Assessment and Plan: SCDs Plan EGD today Continue PPI infusion Monitor H&H Additional Plan Discussed with patient and son at bedside and updated the patient's condition and plan of care. I did tell him that he is going to be receiving additional packed RBCs, PPI infusion to protect the lining of the stomach, GI doctors to evaluate. I answered all questions Code status: Full code Critical care time spent: 46 minutes This dictation may have been done utilizing a voice recognition system. Attempts have been made to correct errors. However, there may be uncorrected grammatical, spelling, and recognition errors present. Due to a high probability of clinically significant, life threatening deterioration, the patient required my highest level of preparedness to intervene emergently and I personally spent this critical care time directly and personally managing the patient. This critical care time included obtaining a history; examining the patient; pulse oximetry; ordering and review of studies; arranging urgent treatment with development of a management plan; evaluation of patient's response to treatment; frequent reassessment; and discussions with other providers. It was exclusive of separately billable procedures and treating other patients and teaching time. Please see Assessment and Plan section and the rest of the note for further information on patient assessment
--- NOTE | 2022-04-17 11:27 | PC.NURSE ---
Patient to GI Lab. Report given to accepting nurse.
--- NOTE | 2022-04-17 11:28 | PC.NURSE ---
This patient, Yuri Iyer, was transferred to [facility] on 04/17/22 at 1120. Personal belongings sent with patient. Report given to accepting RN. Appropriate documentation sent with patient.
[2022-04-17 11:33] LABS: Glucose Point of Care 131 mg/dl (65-105)
[2022-04-17] MEDS: LACTATED RINGERS 1,000 ML 150 ML IV CONT (11:36)
--- NOTE | 2022-04-17 12:11 | PM.IMPN ---
Progress Note: A&P Assessment and Plan (1) Anemia: Code(s): D64.9 - Anemia, unspecified Status: Acute Assessment and Plan: Patient presented with generalized weakness, difficulty in walking, nausea vomiting and diarrhea, complained of black stool, chest discomfort -symptomatic anemia -hemoglobin was 3.9 in the ER and his systolic blood pressures were in the 80s -status post transfusion, trend H&H Transfuse as needed (2) Upper GI bleed: Code(s): K92.2 - Gastrointestinal hemorrhage, unspecified Status: Acute Assessment and Plan: -appreciate GI evaluation recommendation -continue PPI infusion -patient scheduled for EGD (3) Angina at rest: Code(s): I20.8 - Other forms of angina pectoris Status: Acute Assessment and Plan: Patient also complained of some chest discomfort in the ER -after receiving packed RBCs and fluids, chest discomfort has resolved -no indication for emergent cardiac catheterization (4) Afib: Code(s): I48.91 - Unspecified atrial fibrillation Status: Acute Assessment and Plan: Patient with history of AFib/a flutter not on any anticoagulation at home currently rate controlled -initially was tachycardic in the ER which could be related to severe anemia -patient in and out of AFib and sinus rhythm (5) Hemorrhagic shock: Code(s): R57.8 - Other shock Status: Acute Assessment and Plan: Secondary to blood loss. Now improved (6) DVT prophylaxis: Code(s): Z29.9 - Encounter for prophylactic measures, unspecified Status: Acute Assessment and Plan: SCDs Subjective Date/time seen: 04/17/22 12:11 Feeling okay, no chest pain Exam Narrative: General: Pleasant elderly male in no acute distress HEENT: Moist oral mucosa, pupils equal and reactive Neck: Supple, no lymphadenopathy Respiratory: Clear to auscultation bilaterally, decreased at bases Cardiac: S1-S2 is normal, regular rate and rhythm Abdomen: Soft, nontender, nondistended normoactive bowel sounds Extremities: No edema Neuro: Patient is awake, alert, oriented x3, hard of hearing, follows simple commands and answers to questions appropriately Skin: skin tags but no other lesions noted Psych: Normal mentation and affect Objective Data Vital Signs Vital Signs: Vital Signs - 24 hr 04/16/22 12:36 04/16/22 13:20 04/16/22 14:00 Temperature 97.8 F Pulse Rate 88 129 H 90 Respiratory Rate 16 20 18 Blood Pressure 128/58 L 129/62 115/65 Pulse Oximetry 100 100 100 Oxygen Delivery Fraction of Inspired Oxygen 04/16/22 13:36 04/16/22 14:00 04/16/22 15:18 Temperature 97.8 F 97.8 F 97.5 F L Pulse Rate 96 96 101 H Respiratory Rate 19 15 17 Blood Pressure 119/65 117/63 91/77 L Pulse Oximetry 100 100 100 Oxygen Delivery Fraction of Inspired Oxygen 04/16/22 15:00 04/16/22 14:00 04/16/22 15:34 Temperature 97.8 F Pulse Rate 89 96 90 Respiratory Rate 19 14 Blood Pressure 114/71 110/74 Pulse Oximetry 100 100 Oxygen Delivery Fraction of Inspired Oxygen 04/16/22 16:34 04/16/22 16:00 04/16/22 17:34 Temperature 97.6 F 97.7 F Pulse Rate 88 88 88 Respiratory Rate 17 17 24 H Blood Pressure 109/66 110/65 116/76 Pulse Oximetry 100 100 100 Oxygen Delivery Fraction of Inspired Oxygen 04/16/22 17:48 04/16/22 16:00 04/16/22 18:00 Temperature 97.7 F Pulse Rate 88 88 88 Respiratory Rate 18 19 Blood Pressure 111/66 116/62 Pulse Oximetry 100 100 Oxygen Delivery Fraction of Inspired Oxygen 04/16/22 18:00 04/16/22 20:30 04/16/22 20:43 Temperature 97.6 F 97.5 F L Pulse Rate 88 89 89 Respiratory Rate 17 17 Blood Pressure 102/63 103/63 Pulse Oximetry 100 100 Oxygen Delivery Fraction of Inspired Oxygen 04/16/22 20:57 04/16/22 21:53 04/16/22 20:00 Temperature 97.6 F 98.1 F Pulse Rate 89 89 90 Respiratory Rate 12 14 Blood Pressure 95/65 L 101/61 Pulse Oximetry 10
--- NOTE | 2022-04-17 12:14 | WPDANESEPPF ---
Anes - Initial Pre Proc Eval Procedure: Operation Date: 04/17/22 14:00 Proposed Procedures p Esophagogastroduodenoscopy - Kory Hilario MD Date/Time: 04/17/22 12:14 Surgeon: Anival Ramirez MD Pre Op Diagnosis: anemia Patient Data Age: 81 Gender: M Height: 1.7 m Weight: 76.5 kg Last Vital Signs Temp 97.6 F 04/17/22 11:39 Pulse 90 04/17/22 11:39 Resp 20 04/17/22 11:39 BP 109/63 04/17/22 11:39 Pulse Ox 100 04/17/22 11:39 O2 Del Method Room Air 04/17/22 11:39 FiO2 100 04/16/22 22:00 Allergies Allergy/AdvReac Type Severity Reaction Status Date / Time No Known Allergies Allergy Verified 04/17/22 11:36 Home Medications Medication Instructions Recorded Confirmed Type alprazolam 0.25 mg tablet 0.25 mg PO Q8H PRN Anxiety 02/01/22 04/16/22 History amlodipine 10 mg tablet 10 mg PO DAILY 02/01/22 04/16/22 History cholecalciferol (vitamin D3) 50 50 mcg PO DAILY 02/01/22 04/16/22 History mcg (2,000 unit) capsule finasteride 5 mg tablet 5 mg PO DAILY 02/01/22 04/16/22 History folic acid 1 mg tablet 800 mcg PO DAILY 02/01/22 04/16/22 History glipizide 5 mg tablet 5 mg PO DAILY 02/01/22 04/16/22 History metoprolol succinate 25 mg 25 mg PO DAILY 02/01/22 04/16/22 History tablet,extended release 24 hr (Toprol XL) mirtazapine 15 mg disintegrating 15 mg PO HS 02/01/22 04/16/22 History tablet niacin 500 mg tablet,extended 500 mg PO QAM 02/01/22 04/16/22 History release ondansetron HCl 4 mg tablet 4 mg PO Q8H PRN Nausea 02/01/22 04/16/22 History pravastatin 40 mg tablet 40 mg PO DAILY 02/01/22 04/16/22 History triamterene 37.5 1 tablet PO DAILY 02/01/22 04/16/22 History mg-hydrochlorothiazide 25 mg tablet (Maxzide-25mg) Lactobac 51-Bifidobac 1 cap PO DAILY 04/16/22 04/16/22 History 3-L.lactis-S.thermophilus 4 billion cell capsule (Daily Probiotic (10 Strains)) diphenoxylate-atropine 2.5 1 tablet PO Q3H PRN Diarrhea 04/16/22 04/16/22 History mg-0.025 mg tablet esomeprazole magnesium 20 mg 20 mg PO QAM 04/16/22 04/16/22 History capsule,delayed release megestrol 800 mg/20 mL (20 mL) 800 mg PO DAILY 04/16/22 04/16/22 History oral suspension metoclopramide HCl 10 mg tablet 10 mg PO TID 04/16/22 04/16/22 History vitamin B12 0.5 mg-folic acid 1 mg 1 tablet PO DAILY 04/16/22 04/16/[address] Zimmerman's 20 ml SWISHSWALLOW QID 04/17/22 04/17/22 History Vit X-Rabz-Txecjkclf-Hops 1 cap PO DAILY 04/17/22 04/17/22 History Laboratory Tests 04/16/22 04/16/22 04/16/22 10:02 14:03 14:46 WBC RBC Hgb Hct MCV MCH MCHC RDW Plt Count MPV % Immature Plt Fraction PT INR APTT Sodium Potassium Chloride Carbon Dioxide Anion Gap BUN Creatinine Estim Creat Clear Calc Estimated GFR Glucose POC Capillary Glucose 182 mg/dl H mg/dl (65-105) Lactic Acid 2.1 mmol/L H mmol/L (0.7-2.0) Calcium Magnesium Total Bilirubin AST ALT Alkaline Phosphatase Troponin I Total Protein Albumin TSH (Reflex) Urine Color Urine Appearance Urine pH Ur Specific [place] Urine Protein Urine Glucose (UA) Urine Ketones Ur Blood (Man) Urine Nitrate Urine Bilirubin Urine Urobilinogen Leukocyte Esterase Rfl Blood Type A Positive Antibody Screen Negative Crossmatch See Detail 04/16/22 04/16/22 04/16/22 15:40 18:41 19:49 WBC RBC
[2022-04-17 14:16] LABS: Glucose Point of Care 130 mg/dl (65-105)
[2022-04-17 14:16] LABS: Hematocrit 22.7 % (42.0-52.0); Hemoglobin 7.4 g/dL (14.0-18.0)
[2022-04-17 16:33] LABS: Glucose Point of Care 113 mg/dl (65-105)
[2022-04-17] MEDS: CENTRAL LINE FLUSH 20 ML IV PUSH (20:30)
[2022-04-17 20:34] LABS: Hematocrit 21.9 % (42.0-52.0)
[2022-04-17 20:38] LABS: Hemoglobin 6.9 g/dL (14.0-18.0)
[2022-04-18] VITALS (15 sets, daily range): BP systolic 103–121; BP diastolic 54–64; PULSE 88–136; RESP 16–18; TEMP 35.9–37.2; O2SAT 97–100
[2022-04-18 00:48] LABS: Glucose Point of Care 163 mg/dl (65-105)
[2022-04-18 02:29] LABS: Hematocrit 21.2 % (42.0-52.0)
[2022-04-18 02:30] LABS: Hemoglobin 6.9 g/dL (14.0-18.0)
[2022-04-18] MEDS: CENTRAL LINE FLUSH 10 ML IV PUSH ×4 (05:49→21:30)
[2022-04-18 06:16] LABS: Glucose Point of Care 133 mg/dl (65-105)
--- NOTE | 2022-04-18 07:59 | WPDANESPN ---
Anes - Prog Note Post-Op Date/Time: 04/18/22 07:59 Vital Signs: Last Vital Signs Temp 36.7 C 04/18/22 04:00 Pulse 105 H 04/18/22 04:00 Resp 18 04/18/22 04:00 BP 121/64 04/18/22 04:00 Pulse Ox 99 04/18/22 04:00 O2 Del Method Room Air 04/17/22 20:57 FiO2 100 04/16/22 22:00 Pain Score (VAS): 10/27 I/O: Intake & Output 04/17/22 04/17/22 04/18/22 15:59 23:59 07:59 Intake Total 700 240 500 Output Total 1175 450 130 Balance -475 -210 370 Laboratory Tests 04/18/22 02:24 04/17/22 05:00 04/16/22 04/17/22 04/17/22 10:02 07:45 11:31 Hgb Hct PT 16.8 H INR 1.4 APTT 28.9 POC Capillary Glucose 131 H Blood Type A Positive Antibody Screen Negative Crossmatch See Detail 04/17/22 04/17/22 04/17/22 14:01 14:12 16:20 Hgb 7.4 L Hct 22.7 L PT INR APTT POC Capillary Glucose 130 H 113 H Blood Type Antibody Screen Crossmatch 04/17/22 04/18/22 04/18/22 20:26 00:26 02:24 Hgb 6.9 L* 6.9 L* Hct 21.9 L 21.2 L PT INR APTT POC Capillary Glucose 163 H Blood Type Antibody Screen Crossmatch 04/18/22 05:44 Hgb Hct PT INR APTT POC Capillary Glucose 133 H Blood Type Antibody Screen Crossmatch Patient Feedback: Patient satisfied with anesthetic care.
[2022-04-18 10:44] LABS: Hematocrit 21.7 % (42.0-52.0)
[2022-04-18 10:46] LABS: Hemoglobin 6.9 g/dL (14.0-18.0)
[2022-04-18 11:54] LABS: Glucose Point of Care 163 mg/dl (65-105)
[2022-04-18] MEDS: SODIUM CHLORIDE 0.9% IV 250 ML 30 ML IV CONT ×2 (12:13→19:16)
--- NOTE | 2022-04-18 12:40 | PM.IMPN ---
Progress Note: A&P Assessment and Plan (1) Anemia: Code(s): D64.9 - Anemia, unspecified Status: Acute Assessment and Plan: Patient presented with generalized weakness, difficulty in walking, nausea vomiting and diarrhea, complained of black stool, chest discomfort -symptomatic anemia -hemoglobin 6.9 today -trend H&H Transfuse as needed Other considerations include chronic anemia from chemotherapy and cancer and malnutrition with possible lower GI bleed acutely. Will defer to GI for possible colonoscopy. If no further plans for workup from GI standpoint once hemoglobin stable to be discharge. He has a follow-up appointment with his trimmer operator three knife on of this next week (2) Upper GI bleed: Code(s): K92.2 - Gastrointestinal hemorrhage, unspecified Status: Acute Assessment and Plan: EGD noted, no ulcerations. Question plan for colonoscopy. Defer to GI. (3) Angina at rest: Code(s): I20.8 - Other forms of angina pectoris Status: Acute Assessment and Plan: Patient also complained of some chest discomfort in the ER -after receiving packed RBCs and fluids, chest discomfort has resolved -no indication for emergent cardiac catheterization (4) Afib: Code(s): I48.91 - Unspecified atrial fibrillation Status: Acute Assessment and Plan: Patient with history of AFib/a flutter not on any anticoagulation at home currently rate controlled -initially was tachycardic in the ER which could be related to severe anemia -patient in and out of AFib and sinus rhythm (5) Hemorrhagic shock: Code(s): R57.8 - Other shock Status: Acute Assessment and Plan: Secondary to blood loss. Now improved (6) DVT prophylaxis: Code(s): Z29.9 - Encounter for prophylactic measures, unspecified Status: Acute Assessment and Plan: SCDs Additional Plan Discussed with patient and son at bedside and updated the patient's condition and plan of care. I did tell him that he is going to be receiving additional packed RBCs, PPI infusion to protect the lining of the stomach, GI doctors to evaluate. I answered all questions Code status: Full code Critical care time spent: 46 minutes This dictation may have been done utilizing a voice recognition system. Attempts have been made to correct errors. However, there may be uncorrected grammatical, spelling, and recognition errors present. Due to a high probability of clinically significant, life threatening deterioration, the patient required my highest level of preparedness to intervene emergently and I personally spent this critical care time directly and personally managing the patient. This critical care time included obtaining a history; examining the patient; pulse oximetry; ordering and review of studies; arranging urgent treatment with development of a management plan; evaluation of patient's response to treatment; frequent reassessment; and discussions with other providers. It was exclusive of separately billable procedures and treating other patients and teaching time. Please see Assessment and Plan section and the rest of the note for further information on patient assessment and treatment Subjective Date/time seen: 04/18/22 12:40 No new complaints. Hemoglobin noted transfusion orders written Exam Narrative: General: Pleasant elderly male in no acute distress HEENT: Moist oral mucosa, pupils equal and reactive Neck: Supple, no lymphadenopathy Respiratory: Clear to auscultation bilaterally, decreased at bases Cardiac: S1-S2 is normal, regular rate and rhythm Abdomen: Soft, nontender, nondistended normoactive bowel sounds Extremities: No edema Neuro: Patient is awake, alert, oriented x3, hard of hearing, follows simple commands and answers to questions appropriately Skin: skin tags but no other lesions noted Psych: Normal mentation and affect Objective Data Vital Signs Vital Signs: Vi
--- NOTE | 2022-04-18 13:41 | WPDGIPROGNO ---
Progress Note: A&P Assessment and Plan (1) Acute on chronic anemia: Code(s): D64.9 - Anemia, unspecified Status: Acute Assessment and Plan: egd unremarkable without any signs of bleeding, only benign esophageal ring ok to discontinue iv protonix will proceed with colonoscopy tomorrow to assess if any source of gib (patient denies overt gib), says that last BM with brown stool last colonoscopy about 7 years ago most likely anemia is multifactorial (he has widespread metastatic prostate cancer) (2) Atrial fibrillation/flutter: Status: Acute (3) Acute non-ST segment elevation myocardial infarction: Code(s): I21.4 - Non-ST elevation (NSTEMI) myocardial infarction Status: Acute Assessment and Plan: by cardiology (4) Prostate cancer metastatic to bone: Code(s): C61 - Malignant neoplasm of prostate; C79.51 - Secondary malignant neoplasm of bone Status: Acute Assessment and Plan: he is seeing oncology (5) Thrombocytopenia: Code(s): D69.6 - Thrombocytopenia, unspecified Status: Acute Assessment and Plan: also could be related to underlying cancer, previous chemotherapy, etc Subjective Date/time seen: 04/18/22 13:41 Interval history: egd yesterday unremarkable, he is comfortable but receiving another unit prbc. No report of any GIB, no pain. Family is at bedside Review of Systems Review of Systems: All systems reviewed & are unremarkable except as noted in HPI and below Exam Const: General: alert Orientation/consciousness: patient oriented x3 HENMT: General nose exam: Normal nares present Eyes: General: appearance normal, both eyes and all related structures Neck: Neck: supple Resp: Auscultation: clear to auscultation bilaterally Cardio: Rhythm: regular rhythm GI: Inspection: normal to inspection GI Palp: Yes Soft to palpation, Yes Tenderness to palpation present (GI) ( Epigastric area), No Guarding due to palpation present (GI) and Yes No hepatosplenomegaly present Auscultation: normal bowel sounds Skin: General skin exam: pallor Neuro: General: patient oriented x3 Extrem: General: normal to inspection Psych: Mental Status: mental status grossly normal Objective Data Vital Signs Vital Signs: Vital Signs - 24 hr 04/17/22 14:09 04/17/22 16:00 04/17/22 16:00 Temperature 98.7 F 98.6 F Pulse Rate 110 H 88 80 Respiratory Rate 18 18 Blood Pressure 109/61 108/58 L Pulse Oximetry 100 100 Oxygen Delivery 04/17/22 16:00 04/17/22 20:00 04/18/22 00:00 Temperature 98.4 F 98.1 F Pulse Rate 88 90 94 Respiratory Rate 18 18 Blood Pressure 106/58 L 107/58 L Pulse Oximetry 99 98 Oxygen Delivery 04/17/22 20:57 04/17/22 20:00 04/18/22 00:00 Temperature Pulse Rate 97 96 Respiratory Rate Blood Pressure Pulse Oximetry 99 Oxygen Delivery Room Air 04/18/22 04:00 04/18/22 04:00 04/18/22 08:19 Temperature 98.1 F Pulse Rate 88 105 H Respiratory Rate 18 Blood Pressure 121/64 Pulse Oximetry 99 97 Oxygen Delivery Room Air 04/18/22 08:00 04/18/22 12:13 04/18/22 12:28 Temperature 96.7 F L 98.2 F 98.1 F Pulse Rate 109 H 95 105 H Respiratory Rate 18 18 16 Blood Pressure 112/64 121/63 121/60 Pulse Oximetry 100 100 100 Oxygen Delivery 04/18/22 12:00 04/18/22 08:00 04/18/22 13:28 Temperature 98.2 F 96.6 F L Pulse Rate 95 89 92 Respiratory Rate 18 18 Blood Pressure 121/63 109/60 Pulse Oximetry 100 100 Oxygen Delivery Intake/Output Intake/Output: Intake & Output 04/15/22 04/16/22 04/17/22 04/18/22 23:59 23:59 23:59 23:59 Intake Total 1680 1900 1460 Output Total 425 3100 680 Balance 1255 -1200 780 Meds/Results Medications: Active Medications Generic Name Dose Route Start Last Admin Trade Name Freq PRN Reason Stop Dose Admin Alprazolam 0.25 mg 04/16/22 22:44 04/17/22 01:37 Alprazolam (*Crx) 0.25 Mg Tablet PO 0.25 mg Q8H AK
[2022-04-18] MEDS: BISACODYL 5 MG TABLET EC 20 MG PO (17:55)
[2022-04-18] MEDS: polyethylene glycoL 3350 238 GM BOTTLE PO (17:55)
[2022-04-18 18:29] LABS: Glucose Point of Care 185 mg/dl (65-105)
[2022-04-18] MEDS: FAMOTIDINE 20 MG TABLET PO (21:24)
[2022-04-18] MEDS: dilTIAZem HCl INJ 25 MG/5 ML VIAL 10 MG IV PUSH (21:26)
[2022-04-18 23:50] LABS: Glucose Point of Care 196 mg/dl (65-105)
[2022-04-19] VITALS (9 sets, daily range): BP systolic 84–125; BP diastolic 53–72; PULSE 87–109; RESP 18–21; TEMP 36.5–36.6; O2SAT 99–100
[2022-04-19] MEDS: MAGNESIUM CITRATE 300 ML BTL PO (02:35)
[2022-04-19 05:23] LABS: Glucose Point of Care 104 mg/dl (65-105)
[2022-04-19] MEDS: CENTRAL LINE FLUSH 10 ML IV PUSH (05:25)
[2022-04-19] MEDS: CENTRAL LINE FLUSH 20 ML IV PUSH (05:25)
[2022-04-19 05:29] LABS: Hematocrit 26.5 % (42.0-52.0); Hemoglobin 8.6 g/dL (14.0-18.0); Immature Platelet Fraction Pct 3.9 % (0.9-11.2); Mean Corpuscular HGB Conc 32.5 g/dl (32-36); Mean Corpuscular Hemoglobin 28.7 pg (26-34); Mean Corpuscular Volume 88.3 fl (80-100); Mean Platelet Volume 10.1 fl (7.4-10.4); Platelet Count Result 82 k/mm3 (150-375); Red Cell Distribution Width 18.3 % (11.5-14.5); White Blood Count 4.9 K/mm3 (4.5-10.0)
[2022-04-19 05:42] LABS: Anion Gap 7 mmol/L (8-16); Blood Urea Nitrogen 10 mg/dL (9-20); Calcium 7.6 mg/dL (8.4-10.2); Carbon Dioxide 19 mmol/L (22-30); Chloride 108 mmol/L (98-107); Estimated CRCL calculation 77 ml/min; Estimated Glomerular Filt Rate > 60; Glucose 133 mg/dL (65-110); Potassium 3.5 mmol/L (3.4-5.0); Sodium 134 mmol/L (137-145)
[2022-04-19 07:33] LABS: Glucose Point of Care 117 mg/dl (65-105)
--- NOTE | 2022-04-19 07:36 | WPDANESEPPF ---
Anes - Initial Pre Proc Eval Procedure: Operation Date: 04/17/22 14:00 Proposed Procedures p Esophagogastroduodenoscopy - Kory Hilario MD Operation Date: 04/19/22 08:15 Proposed Procedures p Colonoscopy - Bhanu Savage MD Date/Time: 04/19/22 07:36 Surgeon: Anival Ramirez MD Pre Op Diagnosis: anemia Patient Data Age: 81 Gender: M Height: 1.7 m Weight: 77.1 kg Last Vital Signs Temp 36.6 C 04/19/22 04:23 Pulse 107 H 04/19/22 04:23 Resp 18 04/19/22 04:23 BP 102/67 04/19/22 04:23 Pulse Ox 100 04/19/22 04:23 O2 Del Method Room Air 04/18/22 13:59 FiO2 100 04/16/22 22:00 Allergies Allergy/AdvReac Type Severity Reaction Status Date / Time No Known Allergies Allergy Verified 04/17/22 11:36 Home Medications Medication Instructions Recorded Confirmed Type alprazolam 0.25 mg tablet 0.25 mg PO Q8H PRN Anxiety 02/01/22 04/16/22 History amlodipine 10 mg tablet 10 mg PO DAILY 02/01/22 04/16/22 History cholecalciferol (vitamin D3) 50 50 mcg PO DAILY 02/01/22 04/16/22 History mcg (2,000 unit) capsule finasteride 5 mg tablet 5 mg PO DAILY 02/01/22 04/16/22 History folic acid 1 mg tablet 800 mcg PO DAILY 02/01/22 04/16/22 History glipizide 5 mg tablet 5 mg PO DAILY 02/01/22 04/16/22 History metoprolol succinate 25 mg 25 mg PO DAILY 02/01/22 04/16/22 History tablet,extended release 24 hr (Toprol XL) mirtazapine 15 mg disintegrating 15 mg PO HS 02/01/22 04/16/22 History tablet niacin 500 mg tablet,extended 500 mg PO QAM 02/01/22 04/16/22 History release ondansetron HCl 4 mg tablet 4 mg PO Q8H PRN Nausea 02/01/22 04/16/22 History pravastatin 40 mg tablet 40 mg PO DAILY 02/01/22 04/16/22 History triamterene 37.5 1 tablet PO DAILY 02/01/22 04/16/22 History mg-hydrochlorothiazide 25 mg tablet (Maxzide-25mg) Lactobac 51-Bifidobac 1 cap PO DAILY 04/16/22 04/16/22 History 3-L.lactis-S.thermophilus 4 billion cell capsule (Daily Probiotic (10 Strains)) diphenoxylate-atropine 2.5 1 tablet PO Q3H PRN Diarrhea 04/16/22 04/16/22 History mg-0.025 mg tablet esomeprazole magnesium 20 mg 20 mg PO QAM 04/16/22 04/16/22 History capsule,delayed release megestrol 800 mg/20 mL (20 mL) 800 mg PO DAILY 04/16/22 04/16/22 History oral suspension metoclopramide HCl 10 mg tablet 10 mg PO TID 04/16/22 04/16/22 History vitamin B12 0.5 mg-folic acid 1 mg 1 tablet PO DAILY 04/16/22 04/16/[address] Zimmerman's 20 ml SWISHSWALLOW QID 04/17/22 04/17/22 History Vit X-Pjbg-Vvgcxsrcz-Hops 1 cap PO DAILY 04/17/22 04/17/22 History Laboratory Tests 04/16/22 04/18/22 04/18/22 10:02 10:24 11:51 WBC RBC Hgb 6.9 g/dL L* g/dL (14.0-18.0) Hct 21.7 % L % (42.0-52.0) MCV MCH MCHC RDW Plt Count MPV % Immature Plt Fraction Sodium Potassium Chloride Carbon Dioxide Anion Gap BUN Creatinine Estim Creat Clear Calc Estimated GFR Glucose POC Capillary Glucose 163 mg/dl H mg/dl (65-105) Calcium Blood Type A Positive Antibody Screen Negative Crossmatch See Detail 04/18/22 04/18/22 04/19/22 18:27 23:48 05:20 WBC RBC Hgb Hct MCV MCH MCHC RDW Plt Count MPV % Immature Plt Fraction Sodium Potassium Chloride Carbon Dioxide Anion Gap BUN Creatinine Estim Creat Clear Calc Estimated GFR Glucose POC Capillary Glucose 185 mg/dl H mg/dl 196 mg/dl H mg/dl 104 mg/dl mg/dl (65-105)
[2022-04-19] MEDS: LACTATED RINGERS 1,000 ML 150 ML IV CONT (07:38)
[2022-04-19] MEDS: FAMOTIDINE 20 MG TABLET PO (09:32)
--- NOTE | 2022-04-19 11:10 | PM.DS ---
DS: Admitting Diagnosis Discharge Date APRIL 19, 2022 Admitting Diagnosis ANEMIA. DS: Discharge Diagnosis Discharge Diagnosis (1) Anemia: Code(s): D64.9 - Anemia, unspecified Status: Acute Assessment and Plan: Patient presented with generalized weakness, difficulty in walking, nausea vomiting and diarrhea, complained of black stool, chest discomfort -symptomatic anemia -hemoglobin IS NOW STABILIZED AFTER multiple blood transfusions. -trend H&H Transfuse as needed Most likely etiology is acute lower GI bleed that now has resolve in the setting of chronic anemia from cancer and chemotherapy. Patient has an appointment with his oncologist/certified medical assistant this . Will discharge patient on PPI. (2) Upper GI bleed: Code(s): K92.2 - Gastrointestinal hemorrhage, unspecified Status: Acute Assessment and Plan: EGD and colonoscopy noted. No active bleeding noted. Follow up with GI as outpatient (3) Angina at rest: Code(s): I20.8 - Other forms of angina pectoris Status: Acute Assessment and Plan: Patient also complained of some chest discomfort in the ER -after receiving packed RBCs and fluids, chest discomfort has resolved -no indication for emergent cardiac catheterization (4) Afib: Code(s): I48.91 - Unspecified atrial fibrillation Status: Acute Assessment and Plan: Patient with history of AFib/a flutter not on any anticoagulation at home currently rate controlled -initially was tachycardic in the ER which could be related to severe anemia -patient in and out of AFib and sinus rhythm (5) Hemorrhagic shock: Code(s): R57.8 - Other shock Status: Acute Assessment and Plan: Secondary to blood loss. Now improved (6) DVT prophylaxis: Code(s): Z29.9 - Encounter for prophylactic measures, unspecified Status: Acute Assessment and Plan: SCDs DS: Summary Hospital Course Hospital Course: See discharge plan diagnoses Time Spent with Patient Time attestation: Total time spent providing and/or coordinating discharge services: Exam Narrative: General: Pleasant elderly male in no acute distress HEENT: Moist oral mucosa, pupils equal and reactive Neck: Supple, no lymphadenopathy Respiratory: Clear to auscultation bilaterally, decreased at bases Cardiac: S1-S2 is normal, regular rate and rhythm Abdomen: Soft, nontender, nondistended normoactive bowel sounds Extremities: No edema Neuro: Patient is awake, alert, oriented x3, hard of hearing, follows simple commands and answers to questions appropriately Skin: skin tags but no other lesions noted Psych: Normal mentation and affect DS: Data Data Completed and Pending Pending studies at discharge: Pending at discharge 04/17/22 12:46 Surgical [PTH] Routine 04/19/22 07:58 Surgical [PTH] Routine Labs on day of discharge: Labs from last 24 hours 04/19/22 04/19/22 04/19/22 07:31 05:23 05:23 WBC 4.9 RBC 3.00 L Hgb 8.6 L Hct 26.5 L MCV 88.3 MCH 28.7 MCHC 32.5 RDW 18.3 H Plt Count 82 L MPV 10.1 % Immature Plt Fraction 3.9 Sodium 134 L Potassium 3.5 Chloride 108 H Carbon Dioxide 19 L Anion Gap 7 L BUN 10 D Creatinine 0.60 L Estim Creat Clear Calc 77 Estimated GFR > 60 Glucose 133 H POC Capillary Glucose 117 H Calcium 7.6 L Blood Type Antibody Screen Crossmatch 04/19/22 04/18/22 04/18/22 05:20 23:48 18:27 WBC RBC Hgb Hct MCV MCH MCHC RDW Plt Count MPV % Immature Plt Fraction Sodium Potassium Chloride Carbon Dioxide Anion Gap BUN Creatinine Estim Creat Clear Calc Estimated GFR Glucose POC Capillary Glucose 104 196 H 185 H Calcium Blood Type Antibody Screen Crossmatch 04/18/22 04/16/22 11:51 10:02 WBC RBC Hgb Hct MCV MCH MCHC
[2022-04-19 12:09] LABS: Glucose Point of Care 102 mg/dl (65-105)
== END 2022-04-19 14:00 | disposition home or self-care (01) | DRG 377 ==
LOC: ANHED 10:17 → ANHICU 12:39 → ANH3MED 04-17 12:08
PROVIDERS: Internal Medicine; Internal Medicine Cardiovascular Disease; Internal Medicine Gastroenterology; Physician Assistant; Admitting Provider Chiropractor; Emergency Provider Emergency Medicine; PCP Internal Medicine; Visit Provider Chiropractor
PROC: 0DJ08ZZ Inspection of Upper Intestinal Tract, Via Natural or Artificial Opening Endoscopic (ICD-10-PCS; CPT 43235; principal; 2022-04-17 14:00)
PROC: 0DJD8ZZ Inspection of Lower Intestinal Tract, Via Natural or Artificial Opening Endoscopic (ICD-10-PCS; CPT 45378; principal; 2022-04-19 08:15)
DX: K92.2 Gastrointestinal hemorrhage, unspecified (principal); D61.1 Drug-induced aplastic anemia; R57.8 Other shock; C79.51 Secondary malignant neoplasm of bone; I48.92 Unspecified atrial flutter; C61 Malignant neoplasm of prostate; K22.2 Esophageal obstruction; K63.5 Polyp of colon; K64.8 Other hemorrhoids; D63.8 Anemia in other chronic diseases classified elsewhere; T45.1X5A Adverse effect of antineoplastic and immunosuppressive drugs, initial encounter; D50.0 Iron deficiency anemia secondary to blood loss (chronic); E11.9 Type 2 diabetes mellitus without complications; I35.0 Nonrheumatic aortic (valve) stenosis; I20.8 Other forms of angina pectoris; I48.91 Unspecified atrial fibrillation; E78.5 Hyperlipidemia, unspecified; I10 Essential (primary) hypertension; D69.6 Thrombocytopenia, unspecified; F32.A Depression, unspecified; Z66 Do not resuscitate; Z79.899 Other long term (current) drug therapy; Z87.891 Personal history of nicotine dependence
CPT/HCPCS: 36415; 36430; 36556; 80048; 80053; 81003; 82948; 83605; 83735; 84443; 84484; 85014; 85018; 85025; 85027; 85055; 85610; 85730; 86850; 86900; 86901; 86920; 87081; 88305; 93005; 96361; 96374; 97161; 97165; 99285; A9270; C1751; C8929; C9113; J0610; J2001; J2405; J2704; J3480; J7040; J7050; J7060; J7120; P9016; Q9957

== ENCOUNTER 2022-06-21 19:55 | Observation (INO) | payer MEDICARE, SELFPAY ==
--- NOTE | ~2022-06-21 | CT_ITS ---
EXAMINATION: CT brain wo con DATE: 06/21/2022 23:18 INDICATION: delirium . TECHNIQUE: Computed tomography (CT) of the head was performed without intravenous contrast. The mA wa s adjusted according to patient size. Iterative reconstruction technique was employed. The dose-lengt h product was 605.33 mGy-cm. COMPARISON: None FINDINGS: No acute intracranial hemorrhage or extra-axial fluid collection. No hydrocephalus, mass, or herniation. No acute ischemic infarct. Unremarkable dural venous sinus attenuation. No acute osseous abnormality. Somewhat nodular mucosal thickening in the ethmoid air cells, otherwise the aerated spaces are clear. Moderate atrophy. Mild chronic white matter change. Atherosclerotic intracranial calcifications. Like ly bilateral lens replacements. IMPRESSION: No acute intracranial process. Reviewed, dictated and finalized at location K.
--- NOTE | ~2022-06-21 | XR_ITS ---
EXAMINATION: XR chest 2V Exam Date/Time: 06/21/2022 21:00 CDT HISTORY: weakness Comparison: 04/16/2022. RESULT: Lines, tubes, and devices: Partially visualized left shoulder arthroplasty. Lungs and pleura: Clear. Emphysematous and senescent change. Cardiomediastinal silhouette: Stable. Other: No acute osseous or upper abdominal finding. Stable multifocal osseous sclerosis. IMPRESSION: No acute cardiopulmonary process. Reviewed, dictated and finalized at location K.
[2022-06-21 19:51] VITALS: BP 96/64; PULSE 71; RESP 16; TEMP 36.6; O2SAT 100
[2022-06-21 20:06] LABS: Glucose Point of Care 345 mg/dl (65-105)
[2022-06-21] MEDS: SODIUM CHLORIDE 0.9% IV 1,000 ML 999 ML IV CONT ×2 (20:31→22:20)
[2022-06-21 20:58] LABS: Basophils Percent Auto 0.3 % (0.2-1.2); Hematocrit 23.3 % (42.0-52.0); Hemoglobin 7.5 g/dL (14.0-18.0); Immature Granulocyte Absolute 0.05 K/mm3 (0.00-0.031); Immature Granulocyte Percent A 1.5 % (0-0.5); Immature Platelet Fraction Pct 6.8 % (0.9-11.2); Lymphocytes Absolute Auto 0.15 K/mm3 (0.9-3.2); Lymphocytes Percent Auto 4.6 % (18.3-44.2); Mean Corpuscular HGB Conc 32.2 g/dl (32-36); Mean Corpuscular Hemoglobin 29.1 pg (26-34); Mean Corpuscular Volume 90.3 fl (80-100); Mean Platelet Volume 11.2 fl (7.4-10.4); Monocytes Absolute Auto 0.1 K/mm3 (0.1-0.6); Neutrophils Percent Auto 90.6 % (45.5-73.1); Nucleated Red Blood Cells Perc 0.6 % (0.0-0.2); Platelet Count Result 35 k/mm3 (150-375); Red Blood Count 2.58 M/mm3 (4.6-6.20); Red Cell Distribution Width 20.5 % (11.5-14.5); White Blood Count 3.3 K/mm3 (4.5-10.0)
[2022-06-21 21:06] LABS: Lactic Acid Reflex 3.4 mmol/L (0.7-2.0)
[2022-06-21 21:07] LABS: Alanine Aminotransferase 26 U/L (6-50); Alkaline Phosphatase 192 U/L (38-126); Anion Gap 8 mmol/L (8-16); Aspartate Amino Transferase 40 U/L (17-59); Bilirubin,Total 0.3 mg/dL (0.2-1.3); Blood Urea Nitrogen 34 mg/dL (9-20); Calcium 7.4 mg/dL (8.4-10.2); Carbon Dioxide 24 mmol/L (22-30); Chloride 93 mmol/L (98-107); Estimated CRCL calculation 62 ml/min; Estimated Glomerular Filt Rate > 60; Glucose 333 mg/dL (65-110); Potassium 3.4 mmol/L (3.4-5.0); Sodium 125 mmol/L (137-145)
[2022-06-21 21:52] LABS: Appearance Urine Clear (Clear); Bilirubin Urine Negative (Negative); Blood Urine Negative (Negative); Color Urine Yellow (Yellow); Glucose Urine UA Trace mg/dL (Negative); Ketones Urine Negative (Negative); Leukocyte Esterase Ur Negative LEU/UL (Negative); Nitrate Urine Negative (Negative); Protein Urine Negative (Negative); Urobilinogen Urine 0.2 mg/dL (<2.0); pH Urine 5.5 (5.0-9.0)
[2022-06-21 21:54] LABS: Add Urine Microscopic? NO
[2022-06-21 22:00] VITALS: BP 97/72; PULSE 63; RESP 14; O2SAT 100
--- NOTE | 2022-06-21 22:02 | PC.NURSE ---
this RN to room to adjust blood pressure cuff. at that time, pt found to be arguing with his about being stuck inside an [facility] . pt oriented to self, not situation or place.
--- NOTE | 2022-06-21 22:11 | ED.GENADULT ---
HPI - General Adult General Chief complaint: Recheck/Abnormal Lab/Rx Stated complaint: high blood sugar increased confusion Time Seen by Provider: 06/21/22 20:04 History of Present Illness HPI narrative: Patient is a 82-year-old male who presents ER with new confusion. Patient has history of metastatic prostate cancer to bone. He receives and radiation. His oncologist is Dr. Ahumada at [facility] and ultrasound. Last chemotherapy was 2 days ago. Steroid was added to the infusion. His blood sugars have been increasing throughout the day. This is happened on previous infusions when he has been on steroids and has not had issues until recently with never had a back into his therapy. Patient has been having confusion about computers and blood monitors for sugar that he would like them reset. He is still oriented x3 though he is delirious. reports he has had decreased oral intake over the last day and has not been urinating today. No recent falls. Related Data Home Medications Medication Instructions Recorded Confirmed amlodipine 10 mg tablet 10 mg PO DAILY 02/01/22 06/22/22 finasteride 5 mg tablet 5 mg PO DAILY 02/01/22 06/22/22 glipizide 5 mg tablet 5 mg PO DAILY 02/01/22 06/22/22 metoprolol succinate 25 mg 25 mg PO DAILY 02/01/22 06/22/22 tablet,extended release 24 hr (Toprol XL) ondansetron HCl 4 mg tablet 4 mg PO Q8H PRN Nausea 02/01/22 06/22/22 pravastatin 40 mg tablet 40 mg PO DAILY 02/01/22 06/22/22 esomeprazole magnesium 20 mg 20 mg PO QAM 04/16/22 06/22/22 capsule,delayed release metoclopramide HCl 10 mg tablet 10 mg PO TID 04/16/22 06/22/22 dexamethasone 4 mg tablet 4 mg PO DAILY 06/22/22 06/22/22 escitalopram oxalate 10 mg tablet 10 mg PO DAILY 06/22/22 06/22/22 triamterene 37.5 1 tablet PO DAILY 06/22/22 06/22/22 mg-hydrochlorothiazide 25 mg tablet Allergies Allergy/AdvReac Type Severity Reaction Status Date / Time No Known Allergies Allergy Verified 06/21/22 19:57 Review of Systems Review of Systems: ROS unobtainable: Yes unobtainable due to mental status [facility] Past Medical History Medical History Acute on chronic anemia Depression Hyperlipidemia Hypertension Paroxysmal atrial fibrillation Prostate cancer metastatic to bone Thrombocytopenia Type 2 diabetes mellitus Surgical History Surgical History History of abdominal prostatectomy History of inguinal hernia repair, bilateral History of left shoulder replacement Family History Family History Mother Diabetes mellitus Father Lymphoma Family history of malignant neoplasm Sibling Family history of malignant neoplasm Other Family history of malignant neoplasm Other Family history of cardiovascular disease Social History Social History Social History: Surrogate decision maker: Coleen Shireen, spouse. Code status: Do not resuscitate. Smoking packs per day: 1.5 Smoking cigarettes per day: 30.0 Years smoked: 15 Smoking pack-years: 22.50 Smoking status: Former smoker Tobacco type: cigarettes, cigars and smokeless tobacco Second hand tobacco smoke exposure: Yes Smoking end date: 10/18/81 Alcohol intake: never Substance use: never Substance use type: does not use Spiritual care concerns: No Exam Narrative: GENERAL: Chronically ill-appearing, well-nourished, and in no acute distress. HEAD: Normocephalic, atraumatic. EYES: PERRL and EOMI. ENT: Mucous membranes moist. CHEST: Clear to auscultation. No respiratory distress. Radiation site marked to the chest. HEART: Regular rate and rhythm. Normal peripheral pulses. ABDOMEN: Soft, nontender, nondistended. EXTREMITIES: Normal range of motion. No edema. SKIN: Warm, dry, no rash. NEURO: Alert and oriented x3 but has generalized
[2022-06-21] MEDS: LACTATED RINGERS 1,000 ML 999 ML IV CONT (23:21)
[2022-06-21 23:54] LABS: Reflex Lactic Acid Yes or No Add Lactic
[2022-06-22] VITALS (19 sets, daily range): BP systolic 88–114; BP diastolic 54–75; PULSE 60–81; RESP 14–20; TEMP 36.1–36.8; O2SAT 98–100; BMI 22.3
[2022-06-22 00:59] LABS: SARS-CoV-2 RNA PCR Negative
--- NOTE | 2022-06-22 01:10 | ADMGEN ---
This patient, Yuri Iyer, was admitted to IMU Room 206-02 at 0110. Patient/family oriented to hospital policies and general routines including ID bracelet, bed and alarms, visiting hours, pain management, procedures, bathroom and other care routines, personal items, smoking policy, room service/diet, and visiting hours. Information on how to activate the Rapid Response Team has been discussed. Patient/Family are encouraged to report perceived risks to care and to ask questions if they do not understand what they are told or what they should do.
[2022-06-22 01:42] LABS: Lactic Acid 1.8 mmol/L (0.7-2.0)
[2022-06-22] MEDS: LACTATED RINGERS 1,000 ML 125 ML IV CONT ×3 (01:53→17:57)
[2022-06-22] MEDS: HYDROcodone/acetaminophen (*CRX) 5-325 MG TABLET 1 TAB PO (02:14)
[2022-06-22 12:22] LABS: Glucose Point of Care 249 mg/dl (65-105)
--- NOTE | 2022-06-22 12:48 | PM.IMHP ---
H&P: HPI History of Present Illness Date/Time: 06/22/22 12:48 Chief Complaint: Confusion Narrative: 82yo male currently undergoing chemotherapy treatment for metastatic prostate cancer here for confusion. Patient was started on weekly Taxotere on 06/05. One week later on 06/12, he was noted to be weak so the Taxotere was held and he received IV steroids x1. It should be mentioned the patient did receive his 1st radiation treatment to the chest on 06/12 with plans for possible more treatment. Patient does take oral dexamethasone chronically since October. His glucose normally runs 110-245. He checks the glucose 2 to 3 times a day. Patient was on mirtazapine and Lexapro but both of these have been stopped a few weeks ago. He does take medical marijuana daily. No current alcohol or tobacco use. About 5 days ago, patient was noted to be weak. states he has not been eating or drinking very much but does eat ice cream frequently. He is supposed to drink up to 64 fluid oz per day but patient does not do so because of taste disturbance. He has had weight loss overall but no significant loss recently. On June 19, he received his 2nd dose of Taxotere. He also received IV fluids. His blood pressure was soft so the amlodipine was stopped. The following day, the patient felt extremely weak to the point where he could get out of bed. He has not fallen. He has been feeling dizzy that he describes as lightheadedness. He denies any fever or chills. He does feel cold. No chest pain, shortness of breath or cough. No dysuria or hematuria. No nausea, vomiting or diarrhea. Does feel constipated at times. Patient also has been confused which prompted the family to bring to the emergency room. In the ED, blood pressure was 96/64. He had pancytopenia. Sodium was 125 with a potassium of 3.4. He is on max side at home. Last A1c was 5.3 in January. Glucose was 333. Head CT showed no acute findings. Chest x-ray was clear. COVID negative. UA was clear. He was given IV fluids. Was given [place]. He was admitted for further care. Review of Systems Review of Systems: All systems reviewed & are unremarkable except as noted in HPI and below PMFSH Past Medical History Medical History Acute on chronic anemia Depression Hyperlipidemia Hypertension Paroxysmal atrial fibrillation Prostate cancer metastatic to bone Thrombocytopenia Type 2 diabetes mellitus Surgical History Surgical History History of abdominal prostatectomy History of inguinal hernia repair, bilateral History of left shoulder replacement Family History Family History Mother Diabetes mellitus Father Lymphoma Family history of malignant neoplasm Sibling Family history of malignant neoplasm Other Family history of malignant neoplasm Other Family history of cardiovascular disease Social History Social History Social History: Surrogate decision maker: Coleen Shireen, spouse. Code status: Do not resuscitate. Smoking packs per day: 1.5 Smoking cigarettes per day: 30.0 Years smoked: 15 Smoking pack-years: 22.50 Smoking status: Former smoker Tobacco type: cigarettes, cigars and smokeless tobacco Second hand tobacco smoke exposure: Yes Smoking end date: 10/18/81 Alcohol intake: never Substance use: never Substance use type: does not use Spiritual care concerns: No Meds Home Medications and Allergies Home Medications Medication Instructions Recorded Confirmed Type finasteride 5 mg tablet 5 mg PO DAILY 02/01/22 06/22/22 History glipizide 5 mg tablet 5 mg PO DAILY 02/01/22 06/22/22 History metoprolol succinate 25 mg 25 mg PO DAILY 02/01/22 06/22/22 History tablet,extended release 24 hr (Toprol XL) ondanset
[2022-06-22] MEDS: DEXAMETHASONE 4 MG TABLET PO ×2 (14:01→17:13)
[2022-06-22] MEDS: INSULIN ASPART (*BKC) 100 UNITS/ML SUB-Q ×2 (14:02→17:14)
[2022-06-22] MEDS: CYANOCOBALAMIN 500 MCG TABLET PO (14:37)
[2022-06-22] MEDS: PRAVASTATIN SODIUM 20 MG TABLET 40 MG PO (14:37)
[2022-06-22] MEDS: FOLIC ACID 0.4 MG TABLET PO (14:38)
[2022-06-22] MEDS: FINASTERIDE 5 MG TABLET PO (14:38)
[2022-06-22] MEDS: FOLIC ACID 1 MG TABLET PO (14:38)
[2022-06-22] MEDS: PANTOPRAZOLE 40 MG TABLET PO (14:38)
[2022-06-22] MEDS: CHOLECALCIFEROL 1,000 UNITS TABLET 2000 UNITS PO (14:38)
[2022-06-22 16:33] LABS: Glucose Point of Care 213 mg/dl (65-105)
[2022-06-22 19:31] LABS: Hematocrit 26.1 % (42.0-52.0); Hemoglobin 8.3 g/dL (14.0-18.0); Immature Granulocyte Absolute 0.06 K/mm3 (0.00-0.031); Immature Platelet Fraction Pct 6.2 % (0.9-11.2); Lymphocytes Absolute Auto 0.17 K/mm3 (0.9-3.2); Lymphocytes Percent Auto 5.6 % (18.3-44.2); Mean Corpuscular HGB Conc 31.8 g/dl (32-36); Mean Corpuscular Volume 91.3 fl (80-100); Mean Platelet Volume 9.9 fl (7.4-10.4); Monocytes Absolute Auto 0.1 K/mm3 (0.1-0.6); Neutrophils Absolute Auto 2.7 K/mm3 (1.3-6.7); Neutrophils Percent Auto 89.4 % (45.5-73.1); Nucleated Red Blood Cells Perc 1.3 % (0.0-0.2); Platelet Count Result 36 k/mm3 (150-375); Red Blood Count 2.86 M/mm3 (4.6-6.20); Red Cell Distribution Width 21.1 % (11.5-14.5); White Blood Count 3.1 K/mm3 (4.5-10.0)
[2022-06-22 19:38] LABS: Hemoglobin A1C 7.4 % (<5.7)
[2022-06-22 19:45] LABS: Albumin Level 3.1 g/dL (3.5-5.1); Anion Gap 9 mmol/L (8-16); Blood Urea Nitrogen 20 mg/dL (9-20); Carbon Dioxide 27 mmol/L (22-30); Chloride 98 mmol/L (98-107); Estimated CRCL calculation 70 ml/min; Estimated Glomerular Filt Rate > 60; Glucose 187 mg/dL (65-110); Magnesium 1.6 mg/dL (1.6-2.3); Potassium 3.6 mmol/L (3.4-5.0); Sodium 134 mmol/L (137-145)
[2022-06-22 20:01] LABS: Glucose Point of Care 196 mg/dl (65-105)
[2022-06-22 20:55] LABS: Folic Acid > 20.0 ng/mL (2.76->20); Vitamin B12 > 1000.0 pg/mL (239-931)
[2022-06-23] VITALS (10 sets, daily range): BP systolic 90–107; BP diastolic 52–64; PULSE 61–92; RESP 16–20; TEMP 36.3; O2SAT 100; BMI 22.3
[2022-06-23] MEDS: LACTATED RINGERS 1,000 ML 125 ML IV CONT ×2 (01:31→09:24)
[2022-06-23 05:03] LABS: Hematocrit 23.4 % (42.0-52.0); Hemoglobin 7.5 g/dL (14.0-18.0); Immature Granulocyte Absolute 0.09 K/mm3 (0.00-0.031); Immature Granulocyte Percent A 3.9 % (0-0.5); Lymphocytes Absolute Auto 0.13 K/mm3 (0.9-3.2); Lymphocytes Percent Auto 5.7 % (18.3-44.2); Mean Corpuscular HGB Conc 32.1 g/dl (32-36); Mean Corpuscular Hemoglobin 28.7 pg (26-34); Mean Corpuscular Volume 89.7 fl (80-100); Mean Platelet Volume 10.3 fl (7.4-10.4); Monocytes Absolute Auto 0.1 K/mm3 (0.1-0.6); Monocytes Percent Auto 4.3 % (2.6-8.5); Neutrophils Percent Auto 86.1 % (45.5-73.1); Nucleated Red Blood Cells Perc 0.9 % (0.0-0.2); Platelet Count Result 27 k/mm3 (150-375); Red Blood Count 2.61 M/mm3 (4.6-6.20); Red Cell Distribution Width 21.2 % (11.5-14.5); White Blood Count 2.3 K/mm3 (4.5-10.0)
[2022-06-23 05:18] LABS: Alanine Aminotransferase 27 U/L (6-50); Albumin Level 2.8 g/dL (3.5-5.1); Alkaline Phosphatase 165 U/L (38-126); Anion Gap 5 mmol/L (8-16); Aspartate Amino Transferase 29 U/L (17-59); Bilirubin,Total 0.5 mg/dL (0.2-1.3); Blood Urea Nitrogen 18 mg/dL (9-20); Calcium 7.6 mg/dL (8.4-10.2); Carbon Dioxide 29 mmol/L (22-30); Chloride 100 mmol/L (98-107); Estimated CRCL calculation 80 ml/min; Estimated Glomerular Filt Rate > 60; Glucose 217 mg/dL (65-110); Magnesium 1.5 mg/dL (1.6-2.3); Phosphorus 2.3 mg/dL (2.5-4.5); Potassium 3.4 mmol/L (3.4-5.0); Sodium 134 mmol/L (137-145)
[2022-06-23 05:45] LABS: Cortisol Random 1.19 ug/dL
[2022-06-23] MEDS: ACETAMINOPHEN 325 MG TABLET 650 MG PO (06:02)
[2022-06-23] MEDS: MAGNESIUM SULF 2 GM/WATER 50ML 2 GM/50 ML BAG IVPB (07:35)
[2022-06-23 08:33] LABS: Glucose Point of Care 187 mg/dl (65-105)
[2022-06-23] MEDS: POTASSIUM PHOS/SODIUM PHOS 250 MG TABLET PO (09:22)
[2022-06-23] MEDS: PANTOPRAZOLE 40 MG TABLET PO (09:23)
[2022-06-23] MEDS: PRAVASTATIN SODIUM 20 MG TABLET 40 MG PO (09:23)
[2022-06-23] MEDS: CHOLECALCIFEROL 1,000 UNITS TABLET 2000 UNITS PO (09:23)
[2022-06-23] MEDS: DEXAMETHASONE 4 MG TABLET PO (09:23)
[2022-06-23] MEDS: CYANOCOBALAMIN 500 MCG TABLET PO (09:23)
[2022-06-23] MEDS: FOLIC ACID 1 MG TABLET PO (09:23)
[2022-06-23] MEDS: FINASTERIDE 5 MG TABLET PO (09:23)
[2022-06-23] MEDS: glipiZIDE 5 MG TABLET PO (09:24)
[2022-06-23] MEDS: METOPROLOL SUCCINATE EXT REL 12.5 MG TABCR PO (09:24)
[2022-06-23] MEDS: PSYLLIUM POWDER PACKET 1 PACKET PO (09:24)
[2022-06-23 12:47] LABS: Glucose Point of Care 202 mg/dl (65-105)
[2022-06-23] MEDS: INSULIN ASPART (*BKC) 100 UNITS/ML SUB-Q (13:25)
--- NOTE | 2022-06-23 16:06 | PM.DS ---
DS: Admitting Diagnosis Discharge Date 06/23/22 Admitting Diagnosis Confusion DS: Discharge Diagnosis Discharge Diagnosis (1) Delirium: Code(s): R41.0 - Disorientation, unspecified Status: Acute (2) Weakness: Code(s): R53.1 - Weakness Status: Acute (3) Pancytopenia: Code(s): D61.818 - Other pancytopenia Status: Acute (4) Dehydration: Code(s): E86.0 - Dehydration Status: Acute (5) Lactic acid acidosis: Code(s): E87.2 - Acidosis Status: Acute (6) Type 2 diabetes mellitus: Code(s): E11.9 - Type 2 diabetes mellitus without complications Status: Acute (7) Prostate cancer metastatic to bone: Code(s): C61 - Malignant neoplasm of prostate; C79.51 - Secondary malignant neoplasm of bone Status: Acute (8) Atrial fibrillation/flutter: Status: Acute (9) Aortic stenosis: Code(s): I35.0 - Nonrheumatic aortic (valve) stenosis Status: Acute DS: Summary Hospital Course Reason for hospitalization: 82yo male currently undergoing chemotherapy treatment for metastatic prostate cancer here for confusion.? Please see H&P for details. Hospital Course: Patient was confused on the day of admission.? Note states that he was oriented but with generalized confusion felt to be delirium.? No evidence of infection.? Chest x-ray was clear.? Urine was clear.? CT of the brain also does not show any significant changes.? Confusion could be related to the Taxotere and/or dehydration.? TSH, B12 and folate levels normal.?Cortisol level low but he is on steroids. Mental status has returned to baseline.?He worked with PT and OT and was up walking in the halls. Pancytopenia present on admission related to his chemotherapy agents.?Levels low but stable. Patient's blood pressure was soft related to his ongoing dehydration and the fact he is on a diuretic.? We stopped his Maxide.? He was treated with IV hydration.?Lactic acid level was 3.4 but no evidence of infection.? With appropriate treatment for dehydration, his lactic acid has normalized.? Glucose elevated at home and on admission. Probably related to IV steroids he received with the Taxotere and that he is on Decadron. A1c 7.4. We continued his glipizide. Patient with prostate cancer with metastasis to the bone.? No significant bony pain.? He is a DNR.? We continued his oral dexamethasone.? Patient with atrial fibrillation chronically.? He is not on anticoagulation due to his pancytopenia.? We resumed his metoprolol succinate but decrease the dose due to his soft blood pressure.?Echo in March 2022 showing severe aortic stenosis with EUNICE 1.1. He did well overall. His mental status returned to normal. His mood is getting down since admission. He was requesting discharge and his states that he would do better at home. Patient had clinical improvement. BP still soft but better. He was able to be discharged home on 06/23/22. Status at Discharge Cognitive/behavioral status at discharge: Stable Time Spent with Patient Time attestation: Total time spent providing and/or coordinating discharge services:36 minutes Time spent: Greater than 30 minutes Exam Narrative: AF 97.4 90/52 72 16 100% ra Gen - NARD Chest - CTA bilaterally. nml RR CV - irregularly irregular. S1-S2. Tele showin mildly elevated HR at times Abd - soft, NT, +BS Ext - no pedal edema Neuro - patient is alert and oriented x4. Psych - normal mood and affect. Patient is pleasant and cooperative. Skin - warm and dry. DS: Data Data Completed and Pending Labs on day of discharge: Labs from last 24 hours 06/23/22 06/23/22 06/23/22 12:38 08:24 04:44 WBC RBC Hgb Hct MCV MCH MCHC RDW Plt Count MPV Immature Gran % (Auto) Neut % (Auto) Lymph % (Auto) [place] % (Auto) Eos % (Auto) Baso % (Auto) Lymph # (Auto) [place] # (Auto) Eos # (Auto) Baso # (Auto)
== END 2022-06-23 16:56 | disposition home health service (06) ==
LOC: ANHED 23:41 → ANHIMU 06-22 02:19
PROVIDERS: Admitting Provider Internal Medicine; Emergency Provider Emergency Medicine; PCP Internal Medicine; Visit Provider Internal Medicine
DX: R41.0 Disorientation, unspecified (principal); R53.1 Weakness; D61.818 Other pancytopenia; E86.0 Dehydration; E87.2 Acidosis; E11.9 Type 2 diabetes mellitus without complications; C61 Malignant neoplasm of prostate; C79.51 Secondary malignant neoplasm of bone; I48.0 Paroxysmal atrial fibrillation; I35.0 Nonrheumatic aortic (valve) stenosis; D62 Acute posthemorrhagic anemia; F32.A Depression, unspecified; E78.5 Hyperlipidemia, unspecified; I10 Essential (primary) hypertension; D69.6 Thrombocytopenia, unspecified; Z20.822 Contact with and (suspected) exposure to COVID-19; Z87.891 Personal history of nicotine dependence; Z79.51 Long term (current) use of inhaled steroids; Z79.84 Long term (current) use of oral hypoglycemic drugs; Z79.899 Other long term (current) drug therapy; Z83.3 Family history of diabetes mellitus; Z80.9 Family history of malignant neoplasm, unspecified
CPT/HCPCS: 36415; 70450; 71046; 80053; 80069; 81003; 82533; 82607; 82746; 82948; 83036; 83605; 83735; 84100; 84443; 85025; 85055; 86850; 86900; 86901; 96361; 96374; 97161; 97165; 99285; A9270; C9803; G0378; J1815; J3475; J7030; J7120; J8540; U0003; U0005